=== PATIENT | female | born 1985 | race African-American/Black ===

== ENCOUNTER 2016-08-06 20:09 | Emergency (ER) | payer OTHER ==
[2016-08-06 21:08] LABS: Hematocrit 36 % (35-47); Hemoglobin 11.8 g/dl (12.0-16.0); Mean Corpuscular HGB Conc 33 g/dl (31-36); Mean Corpuscular Hemoglobin 28 pg (27-31); Mean Corpuscular Volume 86 fL (80-97); Mean Platelet Volume 8 um3 (7.4-10.4); Red Blood Count 4.17 10^6/ul (4.0-5.4); Red Cell Distribution Width 15 % (10.5-15); White Blood Count 10.8 10^3/ul (3.5-10.8)
[2016-08-06 21:23] LABS: Albumin 4.2 g/dL (3.2-5.2); BUN/Creatinine Ratio 12.8 (8-20); Calcium 9.2 mg/dL (8.6-10.3); EGFR African American 89.9 (>60); EGFR Non-African American 69.9 (>60); Globulin 2.8 g/dL (2-4); Potassium 3.5 mmol/L (3.5-5.0); Total Bilirubin 0.2 mg/dL (0.2-1.0)
--- NOTE | 2016-08-06 22:02 | RAD ---
INDICATION: Chest pain. COMPARISON: Comparison is made with a prior chest x-ray study from October 29, 2011. TECHNIQUE: Dual-energy PA and lateral views of the chest were obtained. FINDINGS: The heart is within normal limits in size. Mediastinal and hilar contours appear within normal limits. The lungs are underinflated and clear. No pleural effusion or pneumothorax is seen. IMPRESSION: NO EVIDENCE FOR ACUTE FINDING.
[2016-08-06] MEDS ORDERED: Ibuprofen TAB* 600 MG PO ONE (22:58)
[2016-08-06 23:36] VITALS: BP 106/54
--- NOTE | 2016-09-14 22:25 | ED ---
camilo Robledo Timothy, scribed for Taurus Cancino on 08/06/16 at 2139 . HPI Chest Pain - HPI Summary HPI Summary: Darcie Muse is a 30 yo female presenting to [facility] with 10/10 constant CP since 1930 today. She states she was giving her son a bath when the pain began, and it has not resolved. She sates she gets dizzy with changes in position, and she felt nauseous during transport She states she sees her PCP for her CP which is reocurring. Pt wore a monitor last week. She denies any drug abuse. Her MHx includes hypothyroidism, hypotension, migraine, asthma, GERD, IBS, hydronephrosis, inverted left SI joint per Pt, depression, andxiety, MRSA. - History of Current Complaint Chief Complaint: EDChestPainROMI Time Seen by Provider: 08/06/16 21:16 Hx Obtained From: Patient Onset/Duration: Started Hours Ago, Still Present Time of Onset: 19:30 Timing: Constant Initial Severity: Moderate Current Severity: Moderate Pain Intensity: 10 Pain Scale Used: 0-10 Numeric Chest Pain Location: Diffuse Chest Pain Radiates: No Aggravating Factor(s): Position - dizziness changes with position Associated Signs and Symptoms: Positive: Chest Pain, Dizziness, Nausea - Additional Pertinent History Primary Care Physician: SHIREEN - Allergy/Home Medications Allergies/Adverse Reactions: Allergies Allergy/AdvReac Type Severity Reaction Status Date / Time Hydromorphone [From Dilaudid] Allergy Intermediate Nausea Verified 03/02/16 02: 48 Cephalexin [From Keflex] AdvReac Intermediate Nausea Verified 08/06/16 20:30 Oxycodone [From Percocet] AdvReac Mild Nausea And Verified 08/06/16 20:30 Vomiting Ciprofloxacin AdvReac Nausea And Verified 03/02/16 02:48 Vomiting PMH/Surg Hx/FS Hx/Imm Hx Endocrine/Hematology History: Reports: Hx Thyroid Disease Denies: Hx Diabetes Cardiovascular History: Reports: Hx Hypotension Denies: Hx Congestive Heart Failure, Hx Hypertension Respiratory History: Reports: Hx Asthma GI History: Reports: Hx Gastroesophageal Reflux Disease, Hx Irritable Bowel, Other GI Disorders - Appendectomy, stomach "issues" History: Reports: Other Problems/Disorders - hydronephrosis Denies: Hx Renal Disease Musculoskeletal History: Reports: Hx Back Problems, Other Musculoskeletal History - INVERTED LEFT SI JOINT PER PT Sensory History: Denies: Hx Contacts or Glasses, Hx Hearing Aid Opthamlomology History: Denies: Hx Contacts or Glasses Neurological History: Reports: Hx Migraine - OCC Psychiatric History: Reports: Hx Anxiety, Hx Depression, Other Psychiatric Issues/Disorders - Benadryl overdose October 2015, took 10 pills due to insommnia Denies: Hx Eating Disorder, Hx Substance Abuse - Surgical History Surgery Procedure, Year, and Place: UMBILICAL HERNIA REPAIR 2001. OVARIAN [place]OMY [place] [facility] [place] 09/08 [facility] [place]x Anesthesia Reactions: No - Immunization History Date of Tetanus Vaccine: Unk Date of Influenza Vaccine: None Infectious Disease History: No Infectious Disease History: Reports: Hx of Known/Suspected MRSA - R knee post fall, 2006 Denies: Traveled Outside the [place] in Last 30 Days - Family History Known Family History: Positive: Cardiac Disease, Other - EtOH depdence, bipolar dz per EMR, malignant hyperthermia, breast CA - Social History Alcohol Use: None Hx Substance Use: No Substance Use Type: Reports: None Substance Use Comment - Amount & Last Used: no known Hx Tobacco Use: No Smoking Status (MU): Never Smoked Tobacco Review of Systems Constitutional: Negative Eyes: Negative ENT: Negative Positive: Chest Pain Respiratory: Negative Positive: Nausea Genitourinary: Negative Musculoskeletal: Negative Skin: Negative Neurological: Other - dizziness Psychological: Normal All Other Systems Reviewed And Are Negative: Yes Physical Exam Triage Information Reviewed: Yes Vital Signs On Initial Exam: Initial Vitals Temp Pulse Resp BP Pulse Ox 98.2 F 70 20 128/63 100 08/06/16 20:10 08/06/16 20:10 08/06/16 20:10 08/06/16 20:10 08/06/16 20:10 Vital Signs Reviewed: Yes Appearance: Positive: Well-Appearing, No Pain Distress, Well-Nourished Skin: Positive: Warm, Skin Color Reflects Adequate Perfusion, Dry Head/Face: Positive: Normal Head/Face Inspection Eyes: Positive: EOMI, CHOCO ENT: Positive: Normal ENT inspection Neck: Positive: Supple, Nontender Respiratory/Lung Sounds: Positive: Clear to Auscultation, Breath Sounds Present Cardiovascular: Positive: RRR, Pulses are Symmetrical in both Upper and Lower Extremities Abdomen Description: Positive: Nontender, Soft Bowel Sounds: Positive: Present Musculoskeletal: Positive: Normal, Strength/ROM Intact Neurological: Positive: Normal, Sensory/Motor Intact, Alert, Oriented to Person Place, Time Psychiatric: Positive: Normal Diagnostics - Vital Signs Vital Signs Temp Pulse Resp BP Pulse Ox 08/06/16 21:02 98 F 71 16 111/60 100 08/06/16 20:10 98.2 F 70 20 128/63 100 - Laboratory Lab Results: Lab Results 08/06/16 Range/Units 20:58 WBC 10.8 (3.5-10.8) 10^3/ul RBC 4.17 (4.0-5.4) 10^6/ul Hgb 11.8 L (12.0-16.0) g/dl Hct 36 (35-47) % MCV 86 (80-97) fL MCH 28 (27-31) pg MCHC 33 (31-36) g/dl RDW 15 (10.5-15) % Plt Count 313 (150-450) 10^3/ul MPV 8 (7.4-10.4) um3 Neut % (Auto) 50.1 (38-83) % Lymph % (Auto) 39.9 (25-47) % [place] % (Auto) 6.0 (1-9) % Eos % (Auto) 3.6 (0-6) % Baso % (Auto) 0.4 (0-2) % Absolute Neuts (auto) 5.4 (1.5-7.7) 10^3/ul Absolute Lymphs (auto) 4.3 (1.0-4.8) 10^3/ul Absolute Monos (auto) 0.6 (0-0.8) 10^3/ul Absolute Eos (auto) 0.4 (0-0.6) 10^3/ul Absolute Basos (auto) 0 (0-0.2) 10^3/ul Absolute Nucleated RBC 0 10^3/ul Nucleated RBC % 0 Result Diagrams: 08/06/16 20:58 08/06/16 20:58 Lab Statement: Any lab studies that have been ordered have been reviewed, and results considered in the medical decision making process. - Radiology CXR Xray Interpretation: No Acute Changes - IMPRESSION: NO EVIDENCE FOR ACUTE FINDING. Radiology Interpretation Completed By: Radiologist - EKG 2014 Cardiac Rate: NL EKG Interpretation: NSR @ 81 BPM, nonspecific T-changes. Chest Pain Course/Dx - Course Assessment/Plan: Darcie Muse is a 30 yo female presenting to [facility] with 10/ 10 CP since 1930 today. After review of her lab work and negative CXR and normal EKG, she will be discharged home with musculoskeletal CP and appropriate instructions. - Diagnoses Provider Diagnoses: Atypical chest pain, Musculoskeletal chest pain Discharge - Discharge Plan Condition: Stable Disposition: HOME Patient Education Materials: Chest Pain (ED) Referrals: Jonna Lin MD [Primary Care Provider] - 3 Days Additional Instructions: Please follow up with your primary care physician in 3 days regarding your visit to the emergency department today. Return to the emergency department with any new or recurring symptoms. The documentation as recorded by the camilo snyder Timothy accurately reflects the service I personally performed and the decisions made by , Taurus Cancino.
== END 2016-08-06 23:51 | disposition home or self-care (01) ==
LOC: ED 20:09
DX: R07.89 Other chest pain (principal); R42 Dizziness and giddiness; R11.0 Nausea
CPT/HCPCS: 36415; 71020; 80053; 84484; 85025; 85379; 85610; 85730; 93005; 99282; A9270-GY

== ENCOUNTER 2017-03-06 20:00 | Emergency (ER) | payer OTHER ==
[2017-03-07] MEDS ORDERED: traMADol TAB* 50 MG PO ONE ×2 (01:22→05:36)
[2017-03-07 03:02] LABS: Hematocrit 37 % (35-47); Hemoglobin 12.1 g/dl (12.0-16.0); Mean Corpuscular HGB Conc 33 g/dl (31-36); Mean Corpuscular Hemoglobin 29 pg (27-31); Mean Corpuscular Volume 90 fL (80-97); Mean Platelet Volume 8 um3 (7.4-10.4); Red Blood Count 4.11 10^6/ul (4.0-5.4); Red Cell Distribution Width 14 % (10.5-15); White Blood Count 11.4 10^3/ul (3.5-10.8)
[2017-03-07 03:17] LABS: Albumin 4.4 g/dL (3.2-5.2); C Reactive Protein 2.68 mg/L (< 5.00); Calcium 9.3 mg/dL (8.6-10.3); EGFR African American 112.4 (>60); EGFR Non-African American 87.4 (>60); Globulin 2.5 g/dL (2-4); Potassium 3.9 mmol/L (3.5-5.0); Total Bilirubin 0.2 mg/dL (0.2-1.0); Total Protein 6.9 g/dL (6.4-8.9)
[2017-03-07 03:27] LABS: Urine Bilirubin Negative (Negative); Urine Glucose Negative (Negative); Urine Nitrite Negative (Negative)
[2017-03-07] MEDS ORDERED: Ketorolac INJ* 30 MG/ML 1 ML VIAL IV ONE (05:36)
[2017-03-07 06:14] VITALS: BP 119/64
--- NOTE | 2017-03-07 07:25 | ED ---
Homero Robledo Abhishek, scribed for Jalen Sy MD on 03/07/17 at 0218 . Back Pain - HPI Summary HPI Summary: This patient is a 31 year old F presenting to [facility] with a chief complaint of right, middle back pain worse since yesterday and onset was two weeks ago. The CC is described as constant and sore on the right side. Pt states pain radiated to the lower extremities in one episode. The patient rates the pain 9/10 in severity. Symptoms aggravated by nothing. Symptoms alleviated by movement. Patient reports CATHERINE. Patient denies SOB, abd pain, fevers, decreased appetite, and chills. PMHx includes frequent urination since , and hydronephrosis. Last was last year. - History of Current Complaint Chief Complaint: EDBackInjuryPain Stated Complaint: BACK PAIN Time Seen by Provider: 03/07/17 01:09 Hx Obtained From: Patient Onset/Duration: Lasting Weeks - 2 weeks, Worse Since - Yesterday Onset/Duration: Started Weeks Ago - 2 weeks Timing: Constant Back Pain Location: Is Discrete @ - Right; middle side, Radiates To - Lower extremeties in one episode Severity Initially: Severe Pain Intensity: 9 Pain Scale Used: 0-10 Numeric Character: Aching - Sore Aggravating Symptom(s): Nothing Alleviating Symptom(s): Other - Movement Associated Signs And Symptoms: Positive: Other - Positive headache and negative SOB, decreased appetite, and chills. Negative: Fever, Abdominal Pain - Allergies/Home Medications Allergies/Adverse Reactions: Allergies Allergy/AdvReac Type Severity Reaction Status Date / Time Hydromorphone [From Dilaudid] Allergy Intermediate Nausea Verified 03/02/16 02: 48 Cephalexin [From Keflex] AdvReac Intermediate Nausea Verified 08/06/16 20:30 Oxycodone [From Percocet] AdvReac Mild Nausea And Verified 08/06/16 20:30 Vomiting Ciprofloxacin AdvReac Nausea And Verified 03/02/16 02:48 Vomiting PMH/Surg Hx/FS Hx/Imm Hx Endocrine/Hematology History: Reports: Hx Thyroid Disease Denies: Hx Diabetes Cardiovascular History: Reports: Hx Hypotension Denies: Hx Congestive Heart Failure, Hx Hypertension Respiratory History: Reports: Hx Asthma GI History: Reports: Hx Gastroesophageal Reflux Disease, Hx Irritable Bowel, Other GI Disorders - Appendectomy, stomach "issues" History: Reports: Other Problems/Disorders - hydronephrosis; frequent urination Denies: Hx Renal Disease Musculoskeletal History: Reports: Hx Back Problems, Other Musculoskeletal History - INVERTED LEFT SI JOINT PER PT Sensory History: Denies: Hx Contacts or Glasses, Hx Hearing Aid Opthamlomology History: Denies: Hx Contacts or Glasses Neurological History: Reports: Hx Migraine - OCC Psychiatric History: Reports: Hx Anxiety, Hx Depression, Other Psychiatric Issues/Disorders - Benadryl overdose October 2015, took 10 pills due to insommnia Denies: Hx Eating Disorder, Hx Substance Abuse - Surgical History Surgery Procedure, Year, and Place: UMBILICAL HERNIA REPAIR 2001. OVARIAN CYSTECTOMY 2006 [facility] [place]. Appendectomy 09/08 [facility] [place] Hx Anesthesia Reactions: No - Immunization History Date of Tetanus Vaccine: Unk Date of Influenza Vaccine: None Infectious Disease History: No Infectious Disease History: Reports: Hx of Known/Suspected MRSA - R knee post fall, 2006 Denies: Traveled Outside the [place] in Last 30 Days - Family History Known Family History: Positive: Cardiac Disease, Other - EtOH depdence, bipolar dz per EMR, malignant hyperthermia, breast CA - Social History Alcohol Use: None Hx Substance Use: No Substance Use Type: Reports: None Substance Use Comment - Amount & Last Used: no known Hx Tobacco Use: No Smoking Status (MU): Never Smoked Tobacco Review of Systems Constitutional: Negative Negative: Fever, Chills Eyes: Negative ENT: Negative Cardiovascular: Negative Respiratory: Negative Negative: Shortness Of Breath Positive: Other - Negative decreased appetite. Negative: Abdominal Pain Genitourinary: Negative Positive: Other - Right, lower middle back pain. pain radiated to lower extremities in one episode. Skin: Negative Positive: Headache Psychological: Normal All Other Systems Reviewed And Are Negative: Yes Physical Exam - Summary Physical Exam Summary: General: mild pain distress, no pain distress Skin: warm, color reflects adequate perfusion, dry Head: normal Eyes: EOMI, CHOCO ENT: normal Neck: supple, nontender Respiratory: CTA, breath sounds present Cardiovascular: RRR Abdomen: soft, nontender Bowel: present Musculoskeletal: strength/ROM intact, tender in the lower thoracic/upper lumbar to palpation, the LE reflexes are intact with no sensation deficits Neurological: normal, sensory/motor intact, A&O x3 Psychological: affect/mood appropriate Triage Information Reviewed: Yes Vital Signs On Initial Exam: Initial Vitals Temp Pulse Resp BP Pulse Ox 97.5 F 69 18 110/67 99 03/06/17 20:11 03/06/17 20:11 03/06/17 20:11 03/06/17 20:11 03/06/17 20:11 Vital Signs Reviewed: Yes - Candice Coma Scale Coma Scale Total: 15 Diagnostics - Vital Signs Vital Signs Temp Pulse Resp BP Pulse Ox 03/06/17 22:15 74 18 124/57 100 03/06/17 20:11 97.5 F 69 18 110/67 99 - Laboratory Lab Results: Lab Results 03/07/17 03/07/17 03/07/17 Range/Units 02:40 02:40 02:40 WBC 11.4 H (3.5-10.8) 10^3/ul RBC 4.11 (4.0-5.4) 10^6/ul Hgb 12.1 (12.0-16.0) g/dl Hct 37 (35-47) % MCV 90 (80-97) fL MCH 29 (27-31) pg MCHC 33 (31-36) g/dl RDW 14 (10.5-15) % Plt Count 311 (150-450) 10^3/ul MPV 8 (7.4-10.4) um3 Neut % (Auto) 52.0 (38-83) % Lymph % (Auto) 37.0 (25-47) % [place] % (Auto) 6.5 (1-9) % Eos % (Auto) 3.6 (0-6) % Baso % (Auto) 0.9 (0-2) % Absolute Neuts (auto) 5.9 (1.5-7.7) 10^3/ul Absolute Lymphs (auto) 4.2 (1.0-4.8) 10^3/ul Absolute Monos (auto) 0.7 (0-0.8) 10^3/ul Absolute Eos (auto) 0.4 (0-0.6) 10^3/ul Absolute Basos (auto) 0.1 (0-0.2) 10^3/ul Absolute Nucleated RBC 0.01 10^3/ul Nucleated RBC % 0.1 Sodium 137 (133-145) mmol/L Potassium 3.9 (3.5-5.0) mmol/L Chloride 106 (101-111) mmol/L Carbon Dioxide 25 (22-32) mmol/L Anion Gap 6 (2-11) mmol/L BUN 10 (6-24) mg/dL Creatinine 0.77 (0.51-0.95) mg/dL Est GFR ( Amer) 112.4 (>60) Est GFR (Non-Af Amer) 87.4 (>60) BUN/Creatinine Ratio 13.0 (8-20) Glucose 99 (70-100) mg/dL Lactic Acid 0.8 (0.5-2.0) mmol/L Calcium 9.3 (8.6-10.3) mg/dL Total Bilirubin 0.20 (0.2-1.0) mg/dL AST 13 (13-39) U/L ALT 14 (7-52) U/L Alkaline Phosphatase 40 (34-104) U/L C-Reactive Protein 2.68 (< 5.00) mg/L Total Protein 6.9 (6.4-8.9) g/dL Albumin 4.4 (3.2-5.2) g/dL Globulin 2.5 (2-4) g/dL Albumin/Globulin Ratio 1.8 (1-3) Lipase 62 (11.0-82.0) U/L Urine Color Urine Appearance Urine pH (5-9) Ur Specific [place] (1.010-1.030) Urine Protein (Negative) Urine Ketones (Negative) Urine Blood (Negative) Urine Nitrate (Negative) Urine Bilirubin (Negative) Urine Urobilinogen (Negative) Ur Leukocyte Esterase (Negative) Urine Glucose (Negative) Urine Ascorbic Acid (Negative) 03/07/17 Range/Units 02:40 WBC (3.5-10.8) 10^3/ul RBC (4.0-5.4) 10^6/ul Hgb (12.0-16.0) g/dl Hct (35-47) % MCV (80-97) fL MCH (27-31) pg MCHC (31-36) g/dl RDW (10.5-15) % Plt Count (150-450) 10^3/ul MPV (7.4-10.4) um3 Neut % (Auto) (38-83) % Lymph % (Auto) (25-47) % [place] % (Auto) (1-9) % Eos % (Auto) (0-6) % Baso % (Auto) (0-2) % Absolute Neuts (auto) (1.5-7.7) 10^3/ul Absolute Lymphs (auto) (1.0-4.8) 10^3/ul Absolute Monos (auto) (0-0.8) 10^3/ul Absolute Eos (auto) (0-0.6) 10^3/ul Absolute Basos (auto) (0-0.2) 10^3/ul Absolute Nucleated RBC 10^3/ul Nucleated RBC % Sodium (133-145) mmol/L Potassium (3.5-5.0) mmol/L Chloride (101-111) mmol/L Carbon Dioxide (22-32) mmol/L Anion Gap (2-11) mmol/L BUN (6-24) mg/dL Creatinine (0.51-0.95) mg/dL Est GFR ( Amer) (>60) Est GFR (Non-Af Amer) (>60) BUN/Creatinine Ratio (8-20) Glucose (70-100) mg/dL Lactic Acid (0.5-2.0) mmol/L Calcium (8.6-10.3) mg/dL Total Bilirubin (0.2-1.0) mg/dL AST (13-39) U/L ALT (7-52) U/L Alkaline Phosphatase (34-104) U/L C-Reactive Protein (< 5.00) mg/L Total Protein (6.4-8.9) g/dL Albumin (3.2-5.2) g/dL Globulin (2-4) g/dL Albumin/Globulin Ratio (1-3) Lipase (11.0-82.0) U/L Urine Color Yellow Urine Appearance Clear Urine pH 6.0 (5-9) Ur Specific [place] 1.017 (1.010-1.030) Urine Protein Negative (Negative) Urine Ketones Negative (Negative) Urine Blood Negative (Negative) Urine Nitrate Negative (Negative) Urine Bilirubin Negative (Negative) Urine Urobilinogen Negative (Negative) Ur Leukocyte Esterase Negative (Negative) Urine Glucose Negative (Negative) Urine Ascorbic Acid * H (Negative) Result Diagrams: 03/07/17 02:40 03/07/17 02:40 Lab Statement: Any lab studies that have been ordered have been reviewed, and results considered in the medical decision making process. - CT CT T-Spine CT Interpretation: No Acute Changes - No thoracic spine fracture. ED physician reviewed radiology report and agrees. CT Interpretation Completed By: Radiologist CT L-Spine CT Interpretation: No Acute Changes - No significant pathology. ED physician reviewed radiology report and agrees. CT Interpretation Completed By: Radiologist CT Abd/Pel CT Interpretation: No Acute Changes - No definite acute pathology. Tiny nonobstructing right renal stone. ED physician reviewed radiology report and agrees. CT Interpretation Completed By: Radiologist Back Pain Course/Dx - Course Course Of Treatment: Allergy noted; medication reviewed. DISCUSSED RESULTS WITH PATIENT. TRAMADOL HELPED THE BACK PAIN. F/U PMD; RETURN IF WORSE. NO CRITICAL CARE TIME. - Diagnoses Provider Diagnoses: Thoracic back pain, Lumbar back pain, Flank pain Discharge - Discharge Plan Condition: Stable Disposition: HOME Prescriptions: traMADol TAB* [Ultram*] 50 mg PO Q6HR PRN #20 tab MDD 4 PRN Reason: Pain Patient Education Materials: Back Pain (ED) Referrals: Jonna Lin MD [Primary Care Provider] - Additional Instructions: FOLLOW UP WITH YOUR DOCTOR. RETURN TO THE EMERGENCY DEPARTMENT FOR ANY WORSENING OF YOUR CONDITION; PIN, WEAKNESS, NUMBNESS, DIFFICULTY CONTROLLING BOWEL OR BLADDER OR QUESTIONS OR CONCERNS. The documentation as recorded by the Homero snyder Abhishek accurately reflects the service I personally performed and the decisions made by me, Jalen Sy MD.
--- NOTE | 2017-03-07 08:00 | RAD ---
INDICATION: Low thoracic, upper lumbar and right flank pain. COMPARISON: Comparison is made with a prior CT of the abdomen and pelvis from May 12, 2014. TECHNIQUE: A CT scan of the abdomen and pelvis was performed without intravenous or oral contrast. Contiguous axial sections were obtained from the lung bases through the symphysis pubis. Images were reconstructed in the coronal and sagittal planes. FINDINGS: The lung bases are clear. No pleural effusion is present. The liver and spleen are within normal limits in size without significant focal abnormality on this noncontrast study. No calcified gallstones are seen. The pancreas appears to be within normal limits in size. The adrenal glands and kidneys are normal in size. There is a 5 mm calculus in the lower pole of the right kidney which is nonobstructing. No hydronephrosis is seen. The aorta is normal in caliber with mild calcific plaque present. No significant enlarged retroperitoneal lymph nodes are seen. The stomach, small and large bowel appear nondistended. The patient is status post appendectomy. There is mild descending and sigmoid diverticulosis without evidence for diverticulitis. The uterus is anteverted and normal in size. There is a T-shaped IUD present. No free intraperitoneal air or fluid is seen. There is sclerotic change around both sacroiliac joints consistent with bilateral sacroiliitis. No significant focal osseous normality is seen. IMPRESSION: 1. NO EVIDENCE FOR ACUTE FINDING OR CAUSE FOR THE PATIENT'S ABDOMINAL PAIN IS SEEN. 2. SMALL NONOBSTRUCTING RIGHT RENAL CALCULUS.
--- NOTE | 2017-03-07 08:00 | RAD ---
HISTORY: Lower thoracic pain COMPARISONS: CT of the abdomen and pelvis dated May 12, 2014. TECHNIQUE: Multiple contiguous axial CT scans were obtained of the thoracic spine without intravenous contrast, with coronal and sagittal multiplanar reformations. FINDINGS: SPINAL CANAL: Evaluation of the central canal is limited on CT technique; however, there is no obvious canalicular mass or epidural hemorrhage. ALIGNMENT: The alignment is normal. VERTEBRAL BODIES: The vertebral bodies are preserved in height. There is circumscribed lucent lesion of the posterior right hemivertebral body of T12 best seen on axial image 99. This measures 1 cm x 0.8 cm x 0.5 cm in size. This can be identified on the May 12, 2014 examination and is stable, most consistent with benign process. JOINTS: There is no subluxation or dislocation. MUSCULATURE: Unremarkable INTERVERTEBRAL DISCS: There is mild diffuse loss of intervertebral disc height throughout the spine. AXIAL IMAGES: There is no osseous central canal stenosis or neuroforaminal narrowing. SOFT TISSUES: The visualized soft tissues of the chest and abdomen are unremarkable. OTHER: None IMPRESSION: 1. THERE IS A NONAGGRESSIVE APPEARING LUCENT LESION OF THE T12 VERTEBRAL BODY, THAT CAN BE IDENTIFIED IN RETROSPECT ON EARLIER EXAMINATIONS AND IS STABLE, CONSISTENT WITH AN INDOLENT PROCESS. THIS MOST LIKELY REPRESENTS A HEMANGIOMA, THOUGH THE IMAGING APPEARANCE IS INDETERMINATE.. 2. NO ACUTE OSSEOUS INJURY TO THE THORACIC SPINE. 3. MILD DEGENERATIVE DISC DISEASE. NO OSSEOUS NEURAL FORAMINAL AREA OR CENTRAL CANAL STENOSIS.
--- NOTE | 2017-03-07 08:03 | RAD ---
HISTORY: Right mid back pain COMPARISONS: CT of the abdomen and pelvis dated May 12, 2014, CT of the thoracic spine dated March 07, 2017 TECHNIQUE: Multiple contiguous axial CT scans were obtained of the lumbar spine without intravenous contrast, with coronal and sagittal multiplanar reformations. FINDINGS: SPINAL CANAL: Evaluation of the central canal is limited on CT technique; however, there is no obvious canalicular mass or epidural hemorrhage. ALIGNMENT: The alignment is normal. VERTEBRAL BODIES: As noted on the CT of the thoracic spine, there is a nonaggressive appearing lucent lesion of the right T12 vertebral body that has been stable from 2013, consistent with a nonaggressive process JOINTS: There is no subluxation or dislocation. MUSCULATURE: Unremarkable INTERVERTEBRAL DISCS: There is mild diffuse loss of intervertebral disc height throughout the spine. AXIAL IMAGES: T12-L1: There is no osseous neural foraminal narrowing or central canal stenosis. L1-L2: There is no osseous neural foraminal narrowing or central canal stenosis. L2-L3: There is no osseous neural foraminal narrowing or central canal stenosis. L3-L4: There is no osseous neural foraminal narrowing or central canal stenosis. L4-L5: There is no osseous neural foraminal narrowing or central canal stenosis. L5-S1: There is mild broad-based disc bulge. There is no osseous neural foraminal narrowing or central canal stenosis. SOFT TISSUES: The visualized soft tissues of the abdomen are unremarkable. OTHER: There is mild SI joint osteoarthritis bilaterally. IMPRESSION: 1. MILD DEGENERATIVE DISC DISEASE. 2. MILD BILATERAL SI JOINT OSTEOARTHRITIS. 3. NO OSSEOUS NEURAL FORAMINAL OR CENTRAL CANAL STENOSIS. 4. NO ACUTE OSSEOUS INJURY TO THE LUMBAR SPINE. 5. NOTED ON THE CT OF THE THORACIC SPINE, THERE IS A NONAGGRESSIVE APPEARING LUCENT LESION OF T12 THAT HAS BEEN STABLE FROM 2013.
== END 2017-03-07 06:12 | disposition home or self-care (01) ==
LOC: ED 20:00
DX: M54.9 Dorsalgia, unspecified (principal); R10.84 Generalized abdominal pain; M51.35 Other intervertebral disc degeneration, thoracolumbar region; R51 Headache; N20.0 Calculus of kidney
CPT/HCPCS: 36415; 72128; 72131; 74176; 80053; 81003; 83605; 83690; 85025; 86140; 96374; 99284; A9270-GY; J1885

== ENCOUNTER 2017-03-20 23:27 | Emergency (ER) | payer OTHER ==
[2017-03-20] MEDS ORDERED: Morphine INJ* 4 MG/ML 1 ML CARPUJECT IV ONE (23:46)
[2017-03-21 00:10] LABS: Hematocrit 37 % (35-47); Hemoglobin 12.4 g/dl (12.0-16.0); Mean Corpuscular HGB Conc 34 g/dl (31-36); Mean Corpuscular Hemoglobin 30 pg (27-31); Mean Corpuscular Volume 90 fL (80-97); Mean Platelet Volume 8 um3 (7.4-10.4); Red Blood Count 4.15 10^6/ul (4.0-5.4); Red Cell Distribution Width 14 % (10.5-15); White Blood Count 20.7 10^3/ul (3.5-10.8)
[2017-03-21 00:11] LABS: Add Diff/Slide Review? Slide Review Added; Comments Flag Yes
[2017-03-21] MEDS ORDERED: Morphine INJ* 4 MG/ML 1 ML CARPUJECT IV ONE (00:20)
[2017-03-21 00:23] LABS: ALT 14 U/L (7-52); AST 12 U/L (13-39); Albumin 4.6 g/dL (3.2-5.2); Alkaline Phosphatase 34 U/L (34-104); Anion Gap 8 mmol/L (2-11); BUN/Creatinine Ratio 16.4 (8-20); Blood Urea Nitrogen 18 mg/dL (6-24); CO2 Carbon Dioxide 22 mmol/L (22-32); Calcium 9.6 mg/dL (8.6-10.3); Chloride 107 mmol/L (101-111); EGFR African American 74.5 (>60); EGFR Non-African American 57.9 (>60); Glucose 117 mg/dL (70-100); Lipase 33 U/L (11.0-82.0); Potassium 3.7 mmol/L (3.5-5.0); Sodium 137 mmol/L (133-145); Total Protein 7.6 g/dL (6.4-8.9)
[2017-03-21] MEDS ORDERED: LORazepam INJ* 2 MG/ML 1 ML VIAL IV PUSH ONE (01:05)
[2017-03-21 01:35] LABS: Urine Bacteria Absent (Absent); Urine Bilirubin Negative (Negative); Urine Glucose Negative (Negative); Urine Nitrite Negative (Negative)
[2017-03-21] MEDS ORDERED: Sulfamethox/Trimethoprim DS 800/160* TAB PO ONE (05:30)
--- NOTE | 2017-03-21 05:35 | ED ---
Tin Robledo Rebecca, scribed for Rosendo Huynh MD on 03/21/17 at 0032 . Back Pain - HPI Summary HPI Summary: Pt is a 31 y/o F BIBA with a PMHx of kidney stones on the R side who has increasing R-sided flank pain. After speaking with her urologist, of her own volition, she pulled out a urinary stent and has since been experiencing increasing pain. Associated pain is currently severe, ranked 10/10. Has taken Percocet 5mg x3 tabs today. Denies any fevers. She is requesting immediate pain medication and weepy on arrival. - History of Current Complaint Chief Complaint: EDFlankPain Stated Complaint: POST SURG PAIN Hx Obtained From: Patient Onset/Duration: Still Present Onset/Duration: Still Present Back Pain Location: Is Discrete @ - R flank Severity Currently: Severe Pain Intensity: 10 Pain Scale Used: 0-10 Numeric Aggravating Symptom(s): Nothing Alleviating Symptom(s): Nothing Associated Signs And Symptoms: Positive: Negative. Negative: Fever - Allergies/Home Medications Allergies/Adverse Reactions: Allergies Allergy/AdvReac Type Severity Reaction Status Date / Time Hydromorphone [From Dilaudid] Allergy Intermediate Nausea Verified 03/02/16 02: 48 Cephalexin [From Keflex] AdvReac Intermediate Nausea Verified 08/06/16 20:30 Oxycodone [From Percocet] AdvReac Mild Nausea And Verified 08/06/16 20:30 Vomiting Ciprofloxacin AdvReac Nausea And Verified 03/02/16 02:48 Vomiting PMH/Surg Hx/FS Hx/Imm Hx Endocrine/Hematology History: Reports: Hx Thyroid Disease Denies: Hx Diabetes Cardiovascular History: Reports: Hx Hypotension Denies: Hx Congestive Heart Failure, Hx Hypertension Respiratory History: Reports: Hx Asthma GI History: Reports: Hx Gastroesophageal Reflux Disease, Hx Irritable Bowel, Other GI Disorders - Appendectomy, stomach "issues" History: Reports: Hx Kidney Stones, Other Problems/Disorders - hydronephrosis; frequent urination Denies: Hx Renal Disease Musculoskeletal History: Reports: Hx Back Problems, Other Musculoskeletal History - INVERTED LEFT SI JOINT PER PT Sensory History: Denies: Hx Contacts or Glasses, Hx Hearing Aid Opthamlomology History: Denies: Hx Contacts or Glasses Neurological History: Reports: Hx Migraine - OCC Psychiatric History: Reports: Hx Anxiety, Hx Depression, Other Psychiatric Issues/Disorders - Benadryl overdose October 2015, took 10 pills due to insommnia Denies: Hx Eating Disorder, Hx Substance Abuse - Surgical History Surgery Procedure, Year, and Place: UMBILICAL HERNIA REPAIR 2001. OVARIAN [place]OM[place] 2006 [facility] [place] 09/08 [facility] [place]x Anesthesia Reactions: No - Immunization History Date of Tetanus Vaccine: Unk Date of Influenza Vaccine: None Infectious Disease History: No Infectious Disease History: Reports: Hx of Known/Suspected MRSA - R knee post fall, 2006 Denies: Traveled Outside the [place] in Last 30 Days - Family History Known Family History: Positive: Cardiac Disease, Other - EtOH depdence, bipolar dz per EMR, malignant hyperthermia, breast CA - Social History Alcohol Use: None Hx Substance Use: No Substance Use Type: Reports: None Substance Use Comment - Amount & Last Used: no known Hx Tobacco Use: No Smoking Status (MU): Never Smoked Tobacco Review of Systems Negative: Fever Positive: flank pain - R-sided All Other Systems Reviewed And Are Negative: Yes Physical Exam - Summary Physical Exam Summary: Appearance: Well-appearing, Well-nourished Skin: Warm Eyes: Normal ENT: Normal Neck: Supple, nontender Respiratory: Clear to auscultation Cardiovascular: Normal Abdomen: Soft, nontender Bowel: Present Musculoskeletal: Strength/ROM Intact, Positive R-sided CVA tenderness Neurological: Normal, A&Ox3 Psychiatric: Appears anxious Triage Information Reviewed: Yes Vital Signs On Initial Exam: Initial Vitals Temp Pulse Resp BP Pulse Ox 98.2 F 65 18 127/91 98 03/20/17 23:46 03/20/17 23:46 03/20/17 23:46 03/20/17 23:46 03/20/17 23:46 Vital Signs Reviewed: Yes - [place] Coma Scale Coma Scale Total: 15 Diagnostics - Vital Signs Vital Signs Temp Pulse Resp BP Pulse Ox 03/21/17 00:27 18 03/21/17 00:02 18 03/20/17 23:46 98.2 F 65 18 127/91 98 - Laboratory Lab Results: Lab Results 03/20/17 03/20/17 03/20/17 Range/Units 23:54 23:54 23:54 WBC 20.7 H (3.5-10.8) 10^3/ul RBC 4.15 (4.0-5.4) 10^6/ul Hgb 12.4 (12.0-16.0) g/dl Hct 37 (35-47) % MCV 90 (80-97) fL MCH 30 (27-31) pg MCHC 34 (31-36) g/dl RDW 14 (10.5-15) % Plt Count 346 (150-450) 10^3/ul MPV 8 (7.4-10.4) um3 Neut % (Auto) 54.1 (38-83) % Lymph % (Auto) 35.9 (25-47) % [place] % (Auto) 7.4 (1-9) % Eos % (Auto) 1.7 (0-6) % Baso % (Auto) 0.9 (0-2) % Absolute Neuts (auto) 11.2 H (1.5-7.7) 10^3/ul Absolute Lymphs (auto) 7.4 H (1.0-4.8) 10^3/ul Absolute Monos (auto) 1.5 H (0-0.8) 10^3/ul Absolute Eos (auto) 0.4 (0-0.6) 10^3/ul Absolute Basos (auto) 0.2 (0-0.2) 10^3/ul Absolute Nucleated RBC 0.02 10^3/ul Nucleated RBC % 0.1 INR (Anticoag Therapy) 0.94 (0.89-1.11) APTT 32.1 (26.0-36.3) seconds Sodium 137 (133-145) mmol/L Potassium 3.7 (3.5-5.0) mmol/L Chloride 107 (101-111) mmol/L Carbon Dioxide 22 (22-32) mmol/L Anion Gap 8 (2-11) mmol/L BUN 18 (6-24) mg/dL Creatinine 1.10 H (0.51-0.95) mg/dL Est GFR ( Amer) 74.5 (>60) Est GFR (Non-Af Amer) 57.9 (>60) BUN/Creatinine Ratio 16.4 (8-20) Glucose 117 H (70-100) mg/dL Calcium 9.6 (8.6-10.3) mg/dL Total Bilirubin 0.40 (0.2-1.0) mg/dL AST 12 L (13-39) U/L ALT 14 (7-52) U/L Alkaline Phosphatase 34 (34-104) U/L Total Protein 7.6 (6.4-8.9) g/dL Albumin 4.6 (3.2-5.2) g/dL Globulin 3.0 (2-4) g/dL Albumin/Globulin Ratio 1.5 (1-3) Lipase 33 (11.0-82.0) U/L Beta HCG, Quant < 0.60 mIU/mL Result Diagrams: 03/20/17 23:54 03/20/17 23:54 Lab Statement: Any lab studies that have been ordered have been reviewed, and results considered in the medical decision making process. Re-Evaluation - Re-Evaluation First Eval Re-Evaluation Time: 03:36 Change: Improved Comment: Urologist is Dr. Currie who the pt reports said he would talk to [facility] and try to get school records figured out for the pt. Pt reports that her urologist told her to remove the stent and that pain began after removal. Pain is improved from how it was previously. Back Pain Course/Dx - Course Course Of Treatment: pt feels better here in ED after meds , instructed to fu with urologist, agrees to and understads dc instructions - Diagnoses Provider Diagnoses: UTI (urinary tract infection), Flank pain Discharge - Discharge Plan Condition: Improved Disposition: HOME Prescriptions: Sulfamethox/Trimethoprim DS* [Bactrim DS 800/160 TAB*] 1 tab PO BID #10 tab Patient Education Materials: Dysuria (ED), Flank Pain (ED) Referrals: Jonna Lin MD [Primary Care Provider] - Kavitha Currie MD [Medical Doctor] - Additional Instructions: PLEASE MAKE AN APPOINTMENT FIRST THING IN THE MORNING TO BE SEEN BY YOUR UROLOGIST DR. CURRIE WITHIN 1-2 DAYS PLEASE RETURN TO THE EMERGENCY ROOM IF YOU HAVE ANY WORSENING OR CONCERNING SYMPTOMS The documentation as recorded by the Tin snyder Rebecca accurately reflects the service I personally performed and the decisions made by me, Rosendo Huynh MD.
[2017-03-21 06:41] VITALS: BP 115/83
== END 2017-03-21 06:52 | disposition home or self-care (01) ==
LOC: ED 23:27
DX: N39.0 Urinary tract infection, site not specified (principal); R10.84 Generalized abdominal pain
CPT/HCPCS: 36415; 80053; 81003; 81015; 83690; 84702; 85025; 85060; 85610; 85730; 96374; 96375; 99285; A9270-GY; J2060; J2270

== ENCOUNTER → 2017-03-22 14:01 | Emergency (ER) | payer OTHER ==
[~2017-03-22 14:01] MED LIST: D5W IVPB ONE; Morphine INJ* 4 MG/ML 1 ML CARPUJECT IV ONE; NS 0.9% 1000 ML* 1,000 ML IV ONE; Ondansetron INJ* 2 MG/ML VIAL IV ONE; Ondansetron ODT TAB* 4 MG PO ONE; SULFAMETHOXAZOLE IVPB ONE; TRIMETH IVPB ONE
[2017-03-22 15:51] LABS: Hematocrit 36 % (35-47); Hemoglobin 12.1 g/dl (12.0-16.0); Mean Corpuscular HGB Conc 34 g/dl (31-36); Mean Corpuscular Hemoglobin 30 pg (27-31); Mean Corpuscular Volume 89 fL (80-97); Mean Platelet Volume 8 um3 (7.4-10.4); Red Blood Count 4.03 10^6/ul (4.0-5.4); Red Cell Distribution Width 13 % (10.5-15); White Blood Count 14.9 10^3/ul (3.5-10.8)
[2017-03-22 16:05] LABS: Albumin 4.4 g/dL (3.2-5.2); BUN/Creatinine Ratio 13.8 (8-20); Calcium 9.2 mg/dL (8.6-10.3); EGFR African American 70.1 (>60); EGFR Non-African American 54.5 (>60); Potassium 3.4 mmol/L (3.5-5.0); Total Bilirubin 0.7 mg/dL (0.2-1.0); Total Protein 7.4 g/dL (6.4-8.9)
[2017-03-22 17:36] LABS: Urine Bacteria Absent (Absent); Urine Bilirubin Negative (Negative); Urine Glucose Negative (Negative); Urine Nitrite Negative (Negative)
[2017-03-22] MEDS: Sulfamethoxazole/Trimeth IV(*) 160 MG in D5W 250 ML BAG* 250 ML IVPB ONE ×2 (19:15→21:06)
[2017-03-22 21:08] VITALS: BP 100/64
--- NOTE | 2017-03-22 22:37 | ED ---
Brandon Robledo Alfonso, scribed for Bravo Solares MD on 03/22/17 at 1510 . Abdominal Pain/Female - HPI Summary HPI Summary: This patient is a 31 year old F presenting to [facility] referred by Dr. Lin (PCP ) accompanied by her cousin with a chief complaint of right flank pain since 4 days ago. The patient reports having a lithotripsy done for a known kidney stone 3 days ago. The patient rates the "excruciating" pain "better in the front than in the back" 10/10 in severity. Symptoms aggravated by pressure and position. Symptoms alleviated by nothing. Patient reports loss of appetite, hematuria, fever, vomiting, and nausea. - History of Current Complaint Chief Complaint: EDFlankPain Stated Complaint: UNABLE TO KEEP FOOD/DRINK DOWN/RIGHT FLANK PAIN Time Seen by Provider: 03/22/17 14:54 Hx Obtained From: Patient Onset/Duration: Gradual Onset, Lasting Days - Since 4 days ago., Still Present Timing: Constant Severity Currently: Severe Pain Intensity: 10 Pain Scale Used: 0-10 Numeric Location: Flank - R Radiates: Yes Radiates to: Back Character: Other: - Excruciating, and feels "better in the front than in the back" Aggravating Factor(s): Other: - Position and Pressure Alleviating Factor(s): Nothing Associated Signs and Symptoms: Positive: Other: - Patient reports loss of appetite, hematuria, fever, vomiting, nausea. Allergies/Adverse Reactions: Allergies Allergy/AdvReac Type Severity Reaction Status Date / Time Hydromorphone [From Dilaudid] Allergy Intermediate Nausea Verified 03/02/16 02: 48 Cephalexin [From Keflex] AdvReac Intermediate Nausea Verified 08/06/16 20:30 Oxycodone [From Percocet] AdvReac Mild Nausea And Verified 08/06/16 20:30 Vomiting Ciprofloxacin AdvReac Nausea And Verified 03/02/16 02:48 Vomiting Home Medications: Home Medications Albuterol 2.5MG/3ML (0.083%)* [Ventolin 2.5 MG/3 ML NEB.MUNA*] 2.5 mg INH Q6H PRN 03/22/17 [History Confirmed 03/22/17] Albuterol HFA INHALER* [Ventolin HFA Inhaler*] 2 puff INH Q4H PRN 03/22/17 [ History Confirmed 03/22/17] Budesonide/Formote 160/4.5(NF) [Symbicort 160/4.5 (NF)] 2 puff INH BID 03/22/17 [History Confirmed 03/22/17] Cyanocobalamin [Vitamin B-12] 5,000 mcg PO DAILY 03/22/17 [History Confirmed ] Levothyroxine TAB* [Synthroid TAB*] 25 mcg PO QAM 03/22/17 [History Confirmed ] Methocarbamol [Robaxin-750 MG TAB] 750 mg PO QID PRN 03/22/17 [History Confirmed 03/22/17] Naproxen TAB* [Naprosyn 250 mg TAB*] 500 mg PO BID 03/22/17 [History Confirmed 03/22/17] oxyCODONE/Acetamin 5/325 MG* [Percocet 5/325 TAB*] 1 tab PO Q4H PRN 03/22/17 [ History Confirmed 03/22/17] PMH/Surg Hx/FS Hx/Imm Hx Endocrine/Hematology History: Reports: Hx Thyroid Disease Denies: Hx Diabetes Cardiovascular History: Reports: Hx Hypotension Denies: Hx Congestive Heart Failure, Hx Hypertension Respiratory History: Reports: Hx Asthma GI History: Reports: Hx Gastroesophageal Reflux Disease, Hx Irritable Bowel, Other GI Disorders - Appendectomy, stomach "issues" History: Reports: Hx Kidney Stones, Other Problems/Disorders - hydronephrosis; frequent urination Denies: Hx Renal Disease Musculoskeletal History: Reports: Hx Back Problems, Other Musculoskeletal History - INVERTED LEFT SI JOINT PER PT Sensory History: Denies: Hx Contacts or Glasses, Hx Hearing Aid Opthamlomology History: Denies: Hx Contacts or Glasses Neurological History: Reports: Hx Migraine - OCC Psychiatric History: Reports: Hx Anxiety, Hx Depression, Other Psychiatric Issues/Disorders - Benadryl overdose October 2015, took 10 pills due to insommnia Denies: Hx Eating Disorder, Hx Substance Abuse - Surgical History Surgery Procedure, Year, and Place: UMBILICAL HERNIA REPAIR 2001. OVARIAN CYSTECTOMY 2006 [facility]. Appendectomy 09/08 [facility] Hx Anesthesia Reactions: No - Immunization History Date of Tetanus Vaccine: Unk Date of Influenza Vaccine: None Infectious Disease History: No Infectious Disease History: Reports: Hx of Known/Suspected MRSA - R knee post fall, 2006 Denies: Traveled Outside the [place] in Last 30 Days - Family History Known Family History: Positive: Cardiac Disease, Other - EtOH depdence, bipolar dz per EMR, malignant hyperthermia, breast CA - Social History Alcohol Use: None Hx Substance Use: No Substance Use Type: Reports: None Substance Use Comment - Amount & Last Used: no known Hx Tobacco Use: No Smoking Status (MU): Never Smoked Tobacco Review of Systems Positive: Fever Positive: Abdominal Pain, Vomiting, Nausea, Other - Loss of appetite Positive: hematuria All Other Systems Reviewed And Are Negative: Yes Physical Exam - Summary Physical Exam Summary: Appearance: Well-appearing, moderate pain distress Skin: Warm, dry, color reflects adequate perfusion Head/face: Nml head/face Eyes: Nml eyes ENT: Nml ENT Neck: Supple, non-tender Respiratory: CTA, breath sound present Cardiovascular: RRR Abdomen: Abd soft, right CVA tenderness, no abd tenderness Bowel: Bowel sounds present Musculoskeletal: Nml musculoskeletal Neurological: Nml neuro, sensory/motor intact, A&Ox3, CN Intact II-III Psychiatric: Nml psychiatric, affect/mood appropriate Triage Information Reviewed: Yes Vital Signs On Initial Exam: Initial Vitals Temp Pulse Resp BP Pulse Ox 97.8 F 79 20 115/98 98 03/22/17 14:07 03/22/17 14:07 03/22/17 14:07 03/22/17 14:07 03/22/17 14:07 Vital Signs Reviewed: Yes Diagnostics - Vital Signs Vital Signs Temp Pulse Resp BP Pulse Ox 03/22/17 14:07 97.8 F 79 20 115/98 98 - Laboratory Lab Results: Lab Results 03/22/17 03/22/17 03/22/17 Range/Units 15:40 15:40 15:40 WBC 14.9 H (3.5-10.8) 10^3/ul RBC 4.03 (4.0-5.4) 10^6/ul Hgb 12.1 (12.0-16.0) g/dl Hct 36 (35-47) % MCV 89 (80-97) fL MCH 30 (27-31) pg MCHC 34 (31-36) g/dl RDW 13 (10.5-15) % Plt Count 313 (150-450) 10^3/ul MPV 8 (7.4-10.4) um3 Neut % (Auto) 71.8 (38-83) % Lymph % (Auto) 17.7 L (25-47) % [place] % (Auto) 8.1 (1-9) % Eos % (Auto) 1.6 (0-6) % Baso % (Auto) 0.8 (0-2) % Absolute Neuts (auto) 10.7 H (1.5-7.7) 10^3/ul Absolute Lymphs (auto) 2.6 (1.0-4.8) 10^3/ul Absolute Monos (auto) 1.2 H (0-0.8) 10^3/ul Absolute Eos (auto) 0.2 (0-0.6) 10^3/ul Absolute Basos (auto) 0.1 (0-0.2) 10^3/ul Absolute Nucleated RBC 0.01 10^3/ul Nucleated RBC % 0 Sodium 135 (133-145) mmol/L Potassium 3.4 L (3.5-5.0) mmol/L Chloride 105 (101-111) mmol/L Carbon Dioxide 23 (22-32) mmol/L Anion Gap 7 (2-11) mmol/L BUN 16 (6-24) mg/dL Creatinine 1.16 H (0.51-0.95) mg/dL Est GFR ( Amer) 70.1 (>60) Est GFR (Non-Af Amer) 54.5 (>60) BUN/Creatinine Ratio 13.8 (8-20) Glucose 94 (70-100) mg/dL Lactic Acid 0.8 (0.5-2.0) mmol/L Calcium 9.2 (8.6-10.3) mg/dL Total Bilirubin 0.70 (0.2-1.0) mg/dL AST 13 (13-39) U/L ALT 14 (7-52) U/L Alkaline Phosphatase 41 (34-104) U/L Total Protein 7.4 (6.4-8.9) g/dL Albumin 4.4 (3.2-5.2) g/dL Globulin 3.0 (2-4) g/dL Albumin/Globulin Ratio 1.5 (1-3) Urine Color Urine Appearance Urine pH (5-9) Ur Specific [place] (1.010-1.030) Urine Protein (Negative) Urine Ketones (Negative) Urine Blood (Negative) Urine Nitrate (Negative) Urine Bilirubin (Negative) Urine Urobilinogen (Negative) Ur Leukocyte Esterase (Negative) Urine WBC (Auto) (Absent) Urine RBC (Auto) (Absent) Urine Bacteria (Absent) Urine Glucose (Negative) Urine Ascorbic Acid (Negative) 03/22/17 03/22/17 Range/Units 17:00 19:59 WBC (3.5-10.8) 10^3/ul RBC (4.0-5.4) 10^6/ul Hgb (12.0-16.0) g/dl Hct (35-47) % MCV (80-97) fL MCH (27-31) pg MCHC (31-36) g/dl RDW (10.5-15) % Plt Count (150-450) 10^3/ul MPV (7.4-10.4) um3 Neut % (Auto) (38-83) % Lymph % (Auto) (25-47) % [place] % (Auto) (1-9) % Eos % (Auto) (0-6) % Baso % (Auto) (0-2) % Absolute Neuts (auto) (1.5-7.7) 10^3/ul Absolute Lymphs (auto) (1.0-4.8) 10^3/ul Absolute Monos (auto) (0-0.8) 10^3/ul Absolute Eos (auto) (0-0.6) 10^3/ul Absolute Basos (auto) (0-0.2) 10^3/ul Absolute Nucleated RBC 10^3/ul Nucleated RBC % Sodium (133-145) mmol/L Potassium (3.5-5.0) mmol/L Chloride (101-111) mmol/L Carbon Dioxide (22-32) mmol/L Anion Gap (2-11) mmol/L BUN (6-24) mg/dL Creatinine (0.51-0.95) mg/dL Est GFR ( Amer) (>60) Est GFR (Non-Af Amer) (>60) BUN/Creatinine Ratio (8-20) Glucose (70-100) mg/dL Lactic Acid 0.6 (0.5-2.0) mmol/L Calcium (8.6-10.3) mg/dL Total Bilirubin (0.2-1.0) mg/dL AST (13-39) U/L ALT (7-52) U/L Alkaline Phosphatase (34-104) U/L Total Protein (6.4-8.9) g/dL Albumin (3.2-5.2) g/dL Globulin (2-4) g/dL Albumin/Globulin Ratio (1-3) Urine Color Red A Urine Appearance Turbid Urine pH 5.0 (5-9) Ur Specific [place] 1.030 (1.010-1.030) Urine Protein 2+(100 mg/dl) H (Negative) Urine Ketones 1+ H (Negative) Urine Blood 2+ H (Negative) Urine Nitrate Negative (Negative) Urine Bilirubin Negative (Negative) Urine Urobilinogen Negative (Negative) Ur Leukocyte Esterase Trace H (Negative) Urine WBC (Auto) Trace(0-5/hpf) (Absent) Urine RBC (Auto) 3+(>10/hpf) H (Absent) Urine Bacteria Absent (Absent) Urine Glucose Negative (Negative) Urine Ascorbic Acid * H (Negative) Result Diagrams: 03/22/17 15:40 03/22/17 15:40 Lab Statement: Any lab studies that have been ordered have been reviewed, and results considered in the medical decision making process. Abdominal Pain Fem Course/Dx - Course Course Of Treatment: Ms. Muse returned with intractable pain and vomiting. She improved with meds here and her labs were improveing also. - Diagnoses Provider Diagnoses: Right flank pain Discharge - Discharge Plan Condition: Stable Disposition: HOME Prescriptions: Ondansetron ODT TAB* [Zofran Odt TAB*] 4 mg PO Q6H PRN #20 tab.odt PRN Reason: Nausea/Vomiting Patient Education Materials: Flank Pain (ED) Referrals: Jonna Lin MD [Primary Care Provider] - 1 Week Kip Rowley MD [Medical Doctor] - 1 Week Additional Instructions: RETURN TO THE EMERGENCY DEPARTMENT FOR CHANGING OR WORSENING SYMPTOMS. The documentation as recorded by the Brandon snyder Alfonso accurately reflects the service I personally performed and the decisions made by , Bravo Solares MD.
== END | disposition home or self-care (01) ==
LOC: ED 14:01
DX: R10.84 Generalized abdominal pain (principal); R63.0 Anorexia; R31.9 Hematuria, unspecified; R11.2 Nausea with vomiting, unspecified
CPT/HCPCS: 36415; 80053; 81003; 81015; 83605; 85025; 87040; 87086; 99283; A9270-GY; J2270; J2405

== ENCOUNTER 2017-11-11 03:18 | Emergency (ER) | payer OTHER ==
[2017-11-11] MEDS ORDERED: diPHENhydraMINE IV* 50 MG/ML 1 ml VIAL (BENADRYL) IV ONE (03:37)
[2017-11-11] MEDS ORDERED: Metoclopramide IV* 5 MG/ML 2 ML VIAL IV ONE (03:37)
[2017-11-11] MEDS ORDERED: NS 0.9% 1000 ML* 1,000 ML IV ONE (03:37)
[2017-11-11] MEDS ORDERED: fentaNYL* 50 MCG/ML 2 ML VIAL (100 MCG VIAL) IV SLOW PU ONE (03:37)
[2017-11-11 04:08] LABS: Hematocrit 38 % (35-47); Hemoglobin 12.8 g/dl (12.0-16.0); Mean Corpuscular HGB Conc 34 g/dl (31-36); Mean Corpuscular Hemoglobin 31 pg (27-31); Mean Corpuscular Volume 91 fL (80-97); Mean Platelet Volume 8.6 um3 (7.4-10.4); Platelet Count 298 10^3/ul (150-450); Red Blood Count 4.17 10^6/ul (4.00-5.40); Red Cell Distribution Width 13 % (10.5-15); White Blood Count 11.7 10^3/ul (3.5-10.8)
[2017-11-11 04:20] LABS: ABS Basophils 0.1 10^3/ul (0-0.2); ABS Eosinophils 0.4 10^3/ul (0-0.6); ABS Lymphocytes 5.2 10^3/ul (1.0-4.8); ABS Monocytes 0.9 10^3/ul (0-0.8); ABS Neutrophils 4.9 10^3/ul (1.5-7.7)
[2017-11-11 04:25] LABS: Urine Appearance Cloudy; Urine Blood 1+ (Negative); Urine Color Yellow; Urine Ketones Negative (Negative); Urine Protein Negative (Negative); Urine Red Blood Cell 3+(>10/hpf) (Absent); Urine Urobilinogen Negative (Negative); Urine White Blood Cell Trace(0-5/hpf) (Absent)
[2017-11-11 05:08] LABS: ABS Nucleated RBC 0 10^3/ul; Eosinophil % 3.1 % (0-6); Lymphocyte % 45.6 % (25-47); Nucleated Red Blood Cells % 0.1
--- NOTE | 2017-11-11 07:24 | ED ---
Verna Robledo Gabriel, scribed for Minor Malave MD on 11/11/17 at 0422 . Abdominal Pain/Female - HPI Summary HPI Summary: This patient is a 31 year old F presenting to [facility] accompanied by his mother with a chief complaint of RUQ and LUQ pain sudden onset an hour ago was asleep woke up. The patient rates the pain 10/10 in severity. Patient reports vomiting. Her last bm was earlier today and states it was normal. She ate dinner tonight which consisted of macaroni and fried chicken, 4 hours prior to onset. Has murina in place. Hx of kidney stones but states it doesnt feel like it. - History of Current Complaint Chief Complaint: EDAbdPain Stated Complaint: ABD PAIN Time Seen by Provider: 11/11/17 03:27 Hx Obtained From: Patient Onset/Duration: Lasting Hours - 2, Still Present Timing: Constant Severity Initially: Severe Severity Currently: Severe Pain Intensity: 10 Pain Scale Used: 0-10 Numeric Location: Diffuse Radiates: No Associated Signs and Symptoms: Positive: Vomiting. Negative: Constipation, Diarrhea Allergies/Adverse Reactions: Allergies Allergy/AdvReac Type Severity Reaction Status Date / Time acetaminophen [From Percocet] Allergy Nausea And Verified 11/11/17 03:24 Vomiting cephalexin [From Keflex] Allergy Nausea And Verified 11/11/17 03:24 Vomiting ciprofloxacin Allergy Nausea And Verified 11/11/17 03:24 Vomiting hydromorphone [From Dilaudid] Allergy Nausea And Verified 11/11/17 03:24 Vomiting oxycodone [From Percocet] Allergy Nausea And Verified 11/11/17 03:24 Vomiting PMH/Surg Hx/FS Hx/Imm Hx Endocrine/Hematology History: Reports: Hx Thyroid Disease Denies: Hx Diabetes Cardiovascular History: Reports: Hx Hypotension Denies: Hx Congestive Heart Failure, Hx Hypertension Respiratory History: Reports: Hx Asthma GI History: Reports: Hx Gastroesophageal Reflux Disease, Hx Irritable Bowel, Other GI Disorders - Appendectomy, stomach "issues" History: Reports: Hx Kidney Stones, Other Problems/Disorders - hydronephrosis; frequent urination Denies: Hx Renal Disease Musculoskeletal History: Reports: Hx Back Problems, Other Musculoskeletal History - INVERTED LEFT SI JOINT PER PT Sensory History: Denies: Hx Contacts or Glasses, Hx Hearing Aid Opthamlomology History: Denies: Hx Contacts or Glasses Neurological History: Reports: Hx Migraine - OCC Psychiatric History: Reports: Hx Anxiety, Hx Depression, Other Psychiatric Issues/Disorders - Benadryl overdose October 2015, took 10 pills due to insommnia Denies: Hx Eating Disorder, Hx Substance Abuse - Surgical History Surgery Procedure, Year, and Place: UMBILICAL HERNIA REPAIR 2001. OVARIAN CYSTECTOMY 2006 [facility] [place]. [place]end[place] 09/08 [facility] [place] Hx Anesthesia Reactions: No - Immunization History Date of Tetanus Vaccine: Unk Date of Influenza Vaccine: None Infectious Disease History: No Infectious Disease History: Reports: Hx of Known/Suspected MRSA - R knee post fall, 2006 Denies: Traveled Outside the [place] in Last 30 Days - Family History Known Family History: Positive: Cardiac Disease, Other - EtOH depdence, bipolar dz per EMR, malignant hyperthermia, breast CA - Social History Alcohol Use: Rare Hx Substance Use: No Substance Use Type: Reports: None Substance Use Comment - Amount & Last Used: no known Hx Tobacco Use: No Smoking Status (MU): Never Smoked Tobacco Review of Systems Negative: Fever Positive: Abdominal Pain, Vomiting. Negative: Diarrhea All Other Systems Reviewed And Are Negative: Yes Physical Exam - Summary Physical Exam Summary: Appearance: Well appearing, writhes in pain Skin: warm, dry, reflects adequate perfusion Head/face: normal Eyes: EOMI, CHOCO ENT: normal Neck: supple, non-tender Respiratory: CTA, breath sounds present Cardiovascular: RRR, pulses symmetrical Abdomen: diffusely guarding, midline surgical scar, s/p C section, hernia repair , and appendectomy, central tenderness. negative murphys sign, mild RUQ tenderness Bowel Sounds: present Musculoskeletal: normal, strength/ROM intact Neuro: normal, sensory motor intact, A&Ox3 Triage Information Reviewed: Yes Vital Signs On Initial Exam: Initial Vitals Temp Pulse Resp BP Pulse Ox 96.7 F 89 28 0/0 99 11/11/17 03:20 11/11/17 03:20 11/11/17 03:20 11/11/17 03:20 11/11/17 03:20 Vital Signs Reviewed: Yes Diagnostics - Vital Signs Vital Signs Temp Pulse Resp BP Pulse Ox 11/11/17 03:42 20 11/11/17 03:20 96.7 F 89 28 0/0 99 - Laboratory Lab Results: Lab Results 11/11/17 11/11/17 11/11/17 Range/Units 03:41 03:41 03:41 WBC 11.7 H (3.5-10.8) 10^3/ul RBC 4.17 (4.00-5.40) 10^6/ul Hgb 12.8 (12.0-16.0) g/dl Hct 38 (35-47) % MCV 91 (80-97) fL MCH 31 (27-31) pg MCHC 34 (31-36) g/dl RDW 13 (10.5-15) % Plt Count 298 (150-450) 10^3/ul MPV 8.6 (7.4-10.4) um3 Neut % (Auto) Pending Lymph % (Auto) Pending Mayes % (Auto) Pending Eos % (Auto) Pending Baso % (Auto) Pending Absolute Neuts (auto) 4.9 (1.5-7.7) 10^3/ul Absolute Lymphs (auto) 5.2 H (1.0-4.8) 10^3/ul Absolute Monos (auto) 0.9 H (0-0.8) 10^3/ul Absolute Eos (auto) 0.4 (0-0.6) 10^3/ul Absolute Basos (auto) 0.1 (0-0.2) 10^3/ul Absolute Nucleated RBC Pending Nucleated RBC % Pending Sodium 139 (135-145) mmol/L Potassium 3.2 L (3.5-5.0) mmol/L Chloride 104 (101-111) mmol/L Carbon Dioxide 27 (22-32) mmol/L Anion Gap 8 (2-11) mmol/L BUN 13 (6-24) mg/dL Creatinine 0.90 (0.51-0.95) mg/dL Est GFR ( Amer) 93.9 (>60) Est GFR (Non-Af Amer) 73.0 (>60) BUN/Creatinine Ratio 14.4 (8-20) Glucose 133 H (70-100) mg/dL Lactic Acid 1.3 (0.5-2.0) mmol/L Calcium 9.2 (8.6-10.3) mg/dL Total Bilirubin 0.20 (0.2-1.0) mg/dL AST 35 (13-39) U/L ALT 25 (7-52) U/L Alkaline Phosphatase 37 (34-104) U/L C-Reactive Protein 2.16 (< 5.00) mg/L Total Protein 7.1 (6.4-8.9) g/dL Albumin 4.3 (3.2-5.2) g/dL Globulin 2.8 (2-4) g/dL Albumin/Globulin Ratio 1.5 (1-3) Lipase 72 (11.0-82.0) U/L Beta HCG, Quant Pending Result Diagrams: 11/11/17 03:41 11/11/17 03:41 Lab Statement: Any lab studies that have been ordered have been reviewed, and results considered in the medical decision making process. - CT CT ABD/Pelvis CT Interpretation Completed By: Radiologist - questionable minimal gallbladder edema can be further evaluated with ultrasound ED physician has reviewed this radiology report. Re-Evaluation - Re-Evaluation First Eval Change: Improved - Pain is largely gone and patient is able to rest after treatment Abdominal Pain Fem Course/Dx - Course Course Of Treatment: Patient with writhing pain not allowing me to adequately assess her on arrival. She did have blood in her urine and so a noncontrast CT was obtained. There is no evidence of kidney stone. There was some questionable wall edema of the gallbladder and so an ultrasound will be obtained. She has no Piña sign and no significant right upper quadrant tenderness. There is stool seen in the area on CAT scan. Physician assistant account manager will make disposition following the ultrasound. - Diagnoses Differential Diagnosis: Positive: Constipation, Gall Bladder Disease, Hepatitis , Pancreatitis, Renal Colic, Urinary Tract Infection Provider Diagnoses: Generalized abdominal pain Discharge - Sign-Out/Discharge Documenting (check all that apply): Sign-Out Patient Signing out patient TO: Neetu Zarate - awaiting US - Discharge Plan Condition: Fair Referrals: Jonna Lin MD [Primary Care Provider] - - Billing Disposition and Condition Condition: FAIR The documentation as recorded by the Verna snyder Gabriel accurately reflects the service I personally performed and the decisions made by me, Minor Malave MD.
--- NOTE | 2017-11-11 08:16 | RAD ---
CLINICAL HISTORY: writhing pain, microscopic hematuria COMPARISON: March 07, 2017 TECHNIQUE: Multiple contiguous axial CT scans were obtained of the abdomen and pelvis, without intravenous contrast enhancement. Coronal and sagittal multiplanar reformations are submitted for review. Oral contrast was not administered. FINDINGS: The study is limited by the lack of intravenous contrast. This limits evaluation of the solid organs and vasculature. LUNG BASES: The lung bases are clear. LIVER: The liver is normal in shape, size, contour, and attenuation. BILE DUCTS: There is no intrahepatic or extrahepatic biliary dilatation. GALLBLADDER: There is minimal gallbladder wall thickening. PANCREAS: The pancreas is normal, without mass or ductal dilatation. SPLEEN: Normal in size and appearance. UPPER GI TRACT: Evaluation of the gastrointestinal tract is limited by incomplete gastric distention. The upper GI tract is unremarkable. SMALL BOWEL AND MESENTERY: The small bowel is normal in contour, course, and caliber. There is no obstruction or dilatation. COLON: The colon is normal in contour, course, caliber. There is no pericolonic inflammatory change. ADRENALS: Normal bilaterally. KIDNEYS: The kidneys are normal in shape, size, contour, and axis. There is no hydronephrosis or nephrolithiasis. BLADDER: The bladder is incompletely distended but is grossly normal. PELVIC ORGANS: The uterus and adnexa are grossly normal for technique. An IUD is noted AORTA: The aorta is normal. IVC: Unremarkable LYMPH NODES: There is no lymphadenopathy by size criteria. ABDOMINAL WALL: There is no evidence for abdominal wall hernia. BONES AND SOFT TISSUES: Unremarkable OTHER: None IMPRESSION: 1. NO HYDRONEPHROSIS OR NEPHROLITHIASIS. 2. QUESTIONABLE MINIMAL GALLBLADDER WALL THICKENING. IF THERE IS CLINICAL CONCERN FOR A PRIMARY INFLAMMATORY PROCESS OF THE GALLBLADDER, ULTRASOUND MAY BE MORE SENSITIVE.
--- NOTE | 2017-11-11 08:40 | RAD ---
HISTORY: abd pain, GB wall edema on CT COMPARISONS: CT dated November 11, 2017 TECHNIQUE: Multiple transverse and longitudinal ultrasound images were obtained of the right upper quadrant of the abdomen using grayscale and color Doppler imaging. FINDINGS: LIVER: The liver is diffusely mildly echogenic and coarse in echotexture, with decreased acoustic transmission. The liver is otherwise normal in shape, size, and contour. There is normal hepatopedal flow of the portal vein on Doppler imaging. BILIARY TREE: There is no intrahepatic or extrahepatic biliary dilatation. The common duct measures 0.4 cm. GALLBLADDER: There is mild gallbladder wall thickening. Gallstones are noted including sternotomy within the neck of the gallbladder. There is a positive sonographic Piña sign. PANCREAS: The head of the pancreas is unremarkable. The tail of the pancreas is not well visualized secondary to overlying bowel gas. RIGHT KIDNEY: The right kidney is normal in shape, size, contour, and echogenicity. There is no hydronephrosis or nephrolithiasis. The right kidney measures 10.6 x 4.1 x 5.3 cm. AORTA AND IVC: The aorta and IVC are unremarkable. FLUID: There are no pleural effusions. There is no free fluid within the hepatorenal recess. OTHER FINDINGS: None. IMPRESSION: CHOLELITHIASIS WITH A POSITIVE SONOGRAPHIC PIÑA SIGN AND MILD GALLBLADDER WALL THICKENING, WITHOUT PERICHOLECYSTIC FLUID. THE SONOGRAPHIC FEATURES ARE INDETERMINATE FOR, BUT SUGGESTIVE OF, ACUTE CHOLECYSTITIS IN THE CORRECT CLINICAL SETTING
[2017-11-11] MEDS ORDERED: PROCHLORPERAZINE INJ 5 MG/ML 2 ML VIAL IV ONE (09:06)
[2017-11-11] MEDS ORDERED: Morphine VIAL* 4 MG/ML VIAL (1 ml vial) IV ONE (09:18)
--- NOTE | 2017-11-11 09:32 | ED ---
Progress - Progress Note Progress Note: Patient is a sign out from Dr. Malave. She presented to the ED last night with upper abdominal pain a few hours after consuming macaroni and cheese and fried chicken. She also admits to associated symptoms of nausea with vomiting. Her CT scan was positive for cholelithiasis and recommended gallbladder of the ultrasound if clinical symptoms correlated. Her gallbladder ultrasound does in fact reveal acute cholecystitis. Her LFTs and lipase were within normal limits last night. Her pain was initially controlled with Benadryl, Reglan and fentanyl however she is developing return of pain and nausea 5 hours later and she has a + Piña's sign currently. Since she has had Reglan within 8 hours, Compazine was ordered along with morphine to which patient is not allergic despite her allergy list (she reports she gets nauseous with narcotics -no allergic reaction). Discussed her case with staff from Dr. Smith's practice. He agrees to consult with the patient once he is out of surgery. In the meantime, will keep patient NPO. Her last meal was last night around 1999. She has a history of asthma which is well controlled. Denies sleep apnea. She has 1 dental cap. She has had surgery in the past and reports "I take a while to come out of anesthesia" but denies any issues during surgery. She denies cardiac issues, bleeding issues. Additionally, she has loss both her brother and her uncle this week and has been upset about it. She just buried her brother Saturday and her uncle's funerals is this Saturday - she's hoping to take care of this issue so she may attend said . UPDATE: pt spoke w/ Dr. Smith and prefers to go home w/o surgery today. Will start augmentin and provide anti-emetic. Pt aware if she feels worse, she needs to return to ED. Otherwise, will f/u w/ Dr. Smith outpatient. Fat- free diet in the meantime. Re-Evaluation - Re-Evaluation First Eval Change: Improved - Pain is largely gone and patient is able to rest after treatment Course/Dx - Course Course Of Treatment: Patient with writhing pain not allowing me to adequately assess her on arrival. She did have blood in her urine and so a noncontrast CT was obtained. There is no evidence of kidney stone. There was some questionable wall edema of the gallbladder and so an ultrasound will be obtained. She has no Piña sign and no significant right upper quadrant tenderness. There is stool seen in the area on CAT scan. Physician physiotherapist's assistant will make disposition following the ultrasound. - Diagnoses Provider Diagnoses: Generalized abdominal pain Discharge - Sign-Out/Discharge Documenting (check all that apply): Discharge/Admit/Transfer - Discharge Plan Condition: Improved Disposition: HOME Prescriptions: Amoxicillin/Clavulanate TAB* [Augmentin TAB 875*] 875 mg PO BID #20 tab Ondansetron ODT TAB* [Zofran 4 MG Odt TAB*] 8 mg PO Q8H PRN #9 tab.odt PRN Reason: Nausea Patient Education Materials: Cholecystitis (ED) Referrals: Jan Smith MD [Medical Doctor] - Additional Instructions: Take medications as directed Follow-up with Dr. Smith as discussed *If worse in the meantime, return to ED - Billing Disposition and Condition Condition: IMPROVED Disposition: Home
[2017-11-11] MEDS ORDERED: Piperacillin/Tazobac ADVAN(*) 3.375 GM in NS 0.9% 100 ML* 100 ML IVPB ONE (11:25)
[2017-11-11 12:15] VITALS: BP 145/78
--- NOTE | 2017-11-11 15:12 | CONS ---
CC: [facility]; Jonna Lin MD * CONSULTATION REPORT: DATE OF CONSULT: 11/11/17 REFERRING PROVIDER: Neetu Zarate NP, in the emergency room. REASON FOR CONSULTATION: Right upper quadrant abdominal pain. HISTORY OF PRESENT ILLNESS: Ms. Darcie Muse is a 31-year-old woman who is healthy otherwise, who developed some epigastric and right upper quadrant abdominal pain of a rather sudden onset last night. This persisted and she presented to the emergency room. This was associated with some nausea without vomiting. She had no pain into her back. She had no lower abdominal discomfort and had no diarrhea. She has not had pain typical of this in the past. In the emergency room, she was noted to be afebrile with stable vital signs. She was noted to have some mild tenderness in the epigastric and right upper quadrant without rebound or guarding, however. There were no masses and there was no lower abdominal pain. Laboratory values included white blood count of 11,700. Electrolytes, lactic acid, liver transaminases and bilirubin, as well as lipase were all unremarkable. Her test was negative. She underwent a CAT scan of the abdomen and pelvis. This was done without intravenous contrast or oral contrast. I did review these images. This shows questionable mild minimal gallbladder wall thickening, but no obvious gallstones. There was no ductal dilation. The liver was otherwise unremarkable. There were no other renal abnormalities noted. She subsequently also underwent an ultrasound of her gallbladder. I also reviewed these images. This shows cholelithiasis with a Piña sign and some mild gallbladder wall thickening without pericholecystic fluid. These findings were "suggestive of acute cholecystitis in the correct clinical setting." A surgical consultation was obtained. PAST MEDICAL HISTORY: Asthma. PAST SURGICAL HISTORY: 1. Laparoscopic appendectomy. 2. section. 3. Umbilical hernia repair without mesh. 4. Epigastric hernia repair. 5. Abdominal wall hernia just above the umbilicus with mesh according to the patient. ALLERGIES: To ACETAMINOPHEN, CEPHALEXIN, CIPRO, HYDROMORPHONE and OXYCODONE. All of the above cause nausea and vomiting. SOCIAL HISTORY: She does not smoke or drink. She has 2 young children. She is not employed at present. She lives here in [place]. PHYSICAL EXAMINATION: Temperature 98.1, pulse 59, blood pressure 103/55. In general, well-developed, well-nourished female, appears to be in no apparent distress. She is quite alert and conversive and pleasant. Lungs were clear to auscultation with normal respiratory effort. Heart with regular rate and rhythm without murmurs, rubs or gallops. Abdomen is soft and nondistended. She has a well-healed low transverse incision. There is a transverse incision above and below the umbilicus, each about 3 cm in length without palpable hernia. There is a small vertical incision midway between the umbilicus and the xiphoid without hernia. She has some mild tenderness in the right upper quadrant and epigastrium without rebound, guarding or mass. IMPRESSION: Right upper quadrant abdominal pain and cholelithiasis with a thickened gallbladder wall. She has a mild elevation of her white blood cell count. I feel that her constellation of symptoms and the imaging are all consistent with acute calculous cholecystitis which started last night. I discussed all of this with her here in the emergency room at length. I would recommend that she would undergo a laparoscopic cholecystectomy for early definitive treatment of her acute calculous cholecystitis with possible discharge later tonight or even tomorrow depending on operating room availability. I discussed the procedure with her and the risks that are but not limited to bleeding, infection, intraabdominal abscess formation, injury to peritoneal and retroperitoneal structures, common bile duct injury requiring further surgical reconstruction, the possibility of an open procedure and the risk of anesthesia and recovery times were all explained. After this discussion; however, she states that she has a variety of personal and family reasons that she would like to try to avoid surgery at this time including of several close relatives and the fact that she has 2 young children at home that do not have reliable child custody evaluator and other reasons that she feels that she would like to avoid surgery. In light of this, I did discuss the other option of treating her with oral antibiotics for 10 days to 2 weeks for treatment of her acute calculous cholecystitis. This could avoid surgery now, but I would recommend an interval cholecystectomy in the next 4 to 6 weeks as long as she continued to improve. I stressed to her that there is no guarantee that antibiotics will adequately treat her symptoms and she may become more tender or sicker in the next several days and that she would need to return to the hospital for most certainly surgery at that time which may be more complicated and more likely to involve an open procedure. After a long discussion and review of the risks and benefits of both options, she would like to try the oral antibiotic course. We will give her Augmentin 875 mg p.o. b.i.d. for at least 10 days. I gave her my business card and strongly recommend that she follow up with me in the office in the next 7 to 10 days to assure improvement as well as discussion of interval cholecystectomy usually as an outpatient. I also stressed to her that if she develops fevers or worsening abdominal discomfort, inability to eat including nausea and vomiting, she needs to present back to the emergency room for further care. [id number]/[facility] #: [id number] DONNA
== END 2017-11-11 12:29 | disposition home or self-care (01) ==
LOC: ED 03:18
DX: K80.20 Calculus of gallbladder without cholecystitis without obstruction (principal); Z87.442 Personal history of urinary calculi; Z88.3 Allergy status to other anti-infective agents; Z88.5 Allergy status to narcotic agent
CPT/HCPCS: 36415; 74176; 76705; 80053; 81003; 81015; 83605; 83690; 84702; 85025; 85060; 86140; 87086; 96374; 96375; 99282; J0780; J1200; J2543; J2765; J3010

== ENCOUNTER 2017-11-20 03:25 | Inpatient (IN) | payer SELFPAY ==
[2017-11-20] MEDS ORDERED: NS 0.9% 1000 ML* 1,000 ML IV ONE (04:01)
[2017-11-20] MEDS ORDERED: Morphine VIAL* 4 MG/ML VIAL (1 ml vial) IV ONE ×2 (04:04→07:37)
[2017-11-20] MEDS ORDERED: Metoclopramide IV* 5 MG/ML 2 ML VIAL IV SLOW PU ONE (04:04)
[2017-11-20 04:34] LABS: ABS Basophils 0.1 10^3/ul (0-0.2); ABS Eosinophils 0.4 10^3/ul (0-0.6); ABS Lymphocytes 4.5 10^3/ul (1.0-4.8); ABS Monocytes 0.7 10^3/ul (0-0.8); ABS Neutrophils 4.8 10^3/ul (1.5-7.7); ABS Nucleated RBC 0 10^3/ul; Eosinophil % 3.8 % (0-6); Hematocrit 36 % (35-47); Hemoglobin 12.5 g/dl (12.0-16.0); Lymphocyte % 42.6 % (25-47); Mean Corpuscular HGB Conc 35 g/dl (31-36); Mean Corpuscular Hemoglobin 31 pg (27-31); Mean Corpuscular Volume 91 fL (80-97); Nucleated Red Blood Cells % 0.1; Platelet Count 301 10^3/ul (150-450); Red Blood Count 3.99 10^6/ul (4.00-5.40); Red Cell Distribution Width 13 % (10.5-15); White Blood Count 10.5 10^3/ul (3.5-10.8)
[2017-11-20 04:51] LABS: EGFR Non-African American 92.4 (>60)
--- NOTE | 2017-11-20 07:07 | ED ---
Tin Robledo Rebecca, scribed for Sanjeev Han MD on 11/20/17 at 0402 . Abdominal Pain/Female - HPI Summary HPI Summary: Pt is a 32 y/o F who presents to ED c/o RUQ pain for "quite sometime" per nurse' s triage. On triage, pain is severe ranked 8/10 and characterized as sharp. Took 800 mg Ibuprofen at 2000. Additionally c/o N/V. Denies fever. For dinner, she had a ham and cheese sandwich at 1700. Has been seen for similar symptoms by [facility] ED in the past, last on 11/11 (9 days ago) after which she tried following up with her PCP, though she reports she didn't have insurance so could not get treated by her PCP or a surgeon. PSHx on the abdomen includes a hernia repair and appy. - History of Current Complaint Chief Complaint: EDAbdPain Stated Complaint: ABD PAIN Time Seen by Provider: 11/20/17 03:35 Hx Obtained From: Patient Onset/Duration: Still Present Severity Currently: Severe Pain Intensity: 8 Pain Scale Used: 0-10 Numeric Location: Discrete At: RUQ Character: Sharp Aggravating Factor(s): Nothing Alleviating Factor(s): Nothing Associated Signs and Symptoms: Positive: Nausea, Vomiting Allergies/Adverse Reactions: Allergies Allergy/AdvReac Type Severity Reaction Status Date / Time acetaminophen [From Percocet] Allergy Nausea And Verified 11/20/17 03:30 Vomiting cephalexin [From Keflex] Allergy Nausea And Verified 11/20/17 03:30 Vomiting ciprofloxacin Allergy Nausea And Verified 11/20/17 03:30 Vomiting hydromorphone [From Dilaudid] Allergy Nausea And Verified 11/20/17 03:30 Vomiting oxycodone [From Percocet] Allergy Nausea And Verified 11/20/17 03:30 Vomiting PMH/Surg Hx/FS Hx/Imm Hx Endocrine/Hematology History: Reports: Hx Thyroid Disease Denies: Hx Diabetes Cardiovascular History: Reports: Hx Hypotension Denies: Hx Congestive Heart Failure, Hx Hypertension Respiratory History: Reports: Hx Asthma GI History: Reports: Hx Gastroesophageal Reflux Disease, Hx Irritable Bowel, Other GI Disorders - Appendectomy, stomach "issues" History: Reports: Hx Kidney Stones, Other Problems/Disorders - hydronephrosis; frequent urination Denies: Hx Renal Disease Musculoskeletal History: Reports: Hx Back Problems, Other Musculoskeletal History - INVERTED LEFT SI JOINT PER PT Sensory History: Denies: Hx Contacts or Glasses, Hx Hearing Aid Opthamlomology History: Denies: Hx Contacts or Glasses Neurological History: Reports: Hx Migraine - OCC Psychiatric History: Reports: Hx Anxiety, Hx Depression, Other Psychiatric Issues/Disorders - Benadryl overdose October 2015, took 10 pills due to insommnia Denies: Hx Eating Disorder, Hx Substance Abuse - Surgical History Surgery Procedure, Year, and Place: UMBILICAL HERNIA REPAIR 2001. OVARIAN CYSTECTOMY 2006 [facility] [place]. Appendectomy 09/08 [facility] [place] Hx Anesthesia Reactions: No - Immunization History Date of Tetanus Vaccine: Unk Date of Influenza Vaccine: None Infectious Disease History: No Infectious Disease History: Reports: Hx of Known/Suspected MRSA - R knee post fall, 2006 Denies: Traveled Outside the [place] in Last 30 Days - Family History Known Family History: Positive: Cardiac Disease, Other - EtOH depdence, bipolar dz per EMR, malignant hyperthermia, breast CA - Social History Alcohol Use: Rare Hx Substance Use: No Substance Use Type: Reports: None Substance Use Comment - Amount & Last Used: no known Hx Tobacco Use: No Smoking Status (MU): Never Smoked Tobacco Review of Systems Negative: Fever Positive: Abdominal Pain - RUQ, Vomiting, Nausea All Other Systems Reviewed And Are Negative: Yes Physical Exam - Summary Physical Exam Summary: VITAL SIGNS: Reviewed. GENERAL: Patient is a well-developed and nourished female who is lying comfortable in the stretcher. Patient is not in any acute respiratory distress. HEAD AND FACE: No signs of trauma. No ecchymosis, hematomas or skull depressions. No sinus tenderness. EYES: PERRLA, EOMI x 2, No injected conjunctiva, no nystagmus. EARS: Hearing grossly intact. Ear canals and tympanic membranes are within normal limits. MOUTH: Oropharynx within normal limits. NECK: Supple, trachea is midline, no adenopathy, no JVD, no carotid bruit, no c- spine tenderness, neck with full ROM. CHEST: Symmetric, no tenderness at palpation LUNGS: Clear to auscultation bilaterally. No wheezing or crackles. CVS: Regular rate and rhythm, S1 and S2 present, no murmurs or gallops appreciated. ABDOMEN: Soft, RUQ tenderness. No signs of distention. No rebound no guarding, and no masses palpated. Bowel sounds are normal. EXTREMITIES: FROM in all major joints, no edema, no cyanosis or clubbing. NEURO: Alert and oriented x 3. No acute neurological deficits. Speech is normal and follows commands. SKIN: Dry and warm Triage Information Reviewed: Yes Vital Signs On Initial Exam: Initial Vitals Temp Pulse Resp BP Pulse Ox 97.9 F 60 16 105/81 100 11/20/17 03:27 11/20/17 03:27 11/20/17 03:27 11/20/17 03:27 11/20/17 03:27 Vital Signs Reviewed: Yes Diagnostics - Vital Signs Vital Signs Temp Pulse Resp BP Pulse Ox 11/20/17 03:27 97.9 F 60 16 105/81 100 - Laboratory Result Diagrams: 11/20/17 04:25 11/20/17 04:25 Lab Statement: Any lab studies that have been ordered have been reviewed, and results considered in the medical decision making process. Re-Evaluation - Re-Evaluation First Eval Re-Evaluation Time: 05:28 Change: Improved Comment: Pt says that her pain is better, however she would like to have a cholecystectomy today, because she cannot take it anymore. She cannot have the surgery as an outpatient because she doesnt have insurance. Did not fill medications b/c she does not have insurance and is only here because she doesn t have insurance. States that she cannot eat most foods, as she is allergic to many vegetables. Will be contacting surgery. Abdominal Pain Fem Course/Dx - Course Course Of Treatment: Pt is a 32 y/o F who presents to ED c/o RUQ pain for " quite sometime" per nurse's triage. On triage, pain is severe ranked 8/10 and characterized as sharp. Took 800 mg Ibuprofen at 2000. Additionally c/o N/V. Denies fever. For dinner, she had a ham and cheese sandwich at 1700. Has been seen for similar symptoms by [facility] ED in the past, last on 11/11 (9 days ago). Blood work was done with results within normal limits except RBC of 3.99 and glucose of 104. In the ED course, pt received Reglan, morphine and fluids. Discussed care of pt with Dr. Guy who will see the pt in the ED this morning. Pt will be signed out to Dr. Rahman, pending dispo, awaiting surgery consult in the ED. Allergies noted. - Diagnoses Provider Diagnoses: Cholelithiasis - Provider Notifications Discussed Care Of Patient With: Yuan Guy Time Discussed With Above Provider: 06:29 Instructed by Provider To: Other - Will see the pt in the ED this morning at 0700. Discharge - Sign-Out/Discharge Documenting (check all that apply): Sign-Out Patient Signing out patient TO: Andrew Rahman - Pending surgeon consult - Discharge Plan Referrals: Jonna Lin MD [Primary Care Provider] - The documentation as recorded by the Tin snyder Rebecca accurately reflects the service I personally performed and the decisions made by , Sanjeev Han MD.
[2017-11-20] MEDS ORDERED: HYDROmorphone INJ* 2 MG/ML CARPUJECT SYRINGE IV PRN (09:33)
[2017-11-20] MEDS ORDERED: Ondansetron 40 MG VIAL* 2 MG/ML 20 ML VIAL IV PRN (09:33)
[2017-11-20] MEDS ORDERED: Albuterol HFA INHALER* 8 gm MDI INH PRN (09:36)
[2017-11-20] MEDS ORDERED: Albuterol 2.5 MG/3 ML NEB.SOL* (0.083%) INH PRN (09:36)
[2017-11-20] MEDS ORDERED: Zosyn 3.375 GM IV - ED ONCE IVPB ONE ×2 (10:00)
--- NOTE | 2017-11-20 11:03 | ED ---
Richard Robledo Tiffany, bonnieibed for Taurus Cancino on 11/20/17 at 1038 . Progress - Progress Note Progress Note: Patient signed out from Dr. Han, awaiting surgery consult, pending disposition. Course/Dx - Course Course Of Treatment: 32 y/o F who presents to ED c/o RUQ pain for "quite sometime" per nurse's triage. Pt signed out from Dr. Han, pending dispo, awaiting surgery consult in the ED. Dr. Henriquez came to evaluate the patient and agreed to admit. - Diagnoses Provider Diagnoses: Cholelithiasis, Abdominal pain - Provider Notifications Discussed Care Of Patient With: Stu Henriquez Time Discussed With Above Provider: 10:36 Instructed by Provider To: Other - Dr. Henriquez, surgery, agrees to admit patient. Discharge - Sign-Out/Discharge Documenting (check all that apply): Discharge/Admit/Transfer - admit - Discharge Plan Condition: Fair Disposition: ADMITTED TO [facility] Discharge Disposition Comment: To Dr. Henriquez Referrals: Jonna Lin MD [Primary Care Provider] - The documentation as recorded by the Richard snyder Tiffany accurately reflects the service I personally performed and the decisions made by Julita smith Emmanuel.
[2017-11-20] MEDS ORDERED: Morphine VIAL* 4 MG/ML VIAL (1 ml vial) IV PRN (12:35)
[2017-11-20] MEDS ORDERED: Piperacillin/Tazobactam VIAL*) 3.375 GM in NS 0.9% 100 ML* 100 ML IVPB SCH (14:00)
[2017-11-20] MEDS ORDERED: ZOSYN 3.375 GM Q8H per EXTENDED INFUSION IVPB SCH ×2 (14:30)
[2017-11-20] MEDS ORDERED: Bupivacaine 0.5% SDV PF* 30ML VIAL ONE (19:00)
[2017-11-20] MEDS ORDERED: Scopolamine 1.5 mg* PATCH ONE (19:19)
[2017-11-20] MEDS ORDERED: fentaNYL* 50 MCG/ML 2 ML VIAL (100 MCG VIAL) ONE ×3 (19:25→21:04)
[2017-11-20] MEDS ORDERED: Midazolam* 1 MG/ML 2 ML VIAL (2 MG) ONE (19:26)
[2017-11-20] MEDS ORDERED: Dexamethasone IV* 4 MG/ML 1 ML (4 MG) ONE (20:12)
[2017-11-20] MEDS ORDERED: Propofol* 10 MG/ML 20 ML BTL IV PUSH ONE (20:12)
[2017-11-20] MEDS ORDERED: Succinylcholine* 20 MG/ML 10 ML VIAL ONE (20:12)
[2017-11-20] MEDS ORDERED: Lidocaine 2% PF * 5 ML VIAL ONE (20:13)
--- NOTE | 2017-11-20 20:22 | BRIEFOPN ---
Brief Operative Note - Surgery Procedures: Procedures Pre-OP Diagnoses: chronic cholecystitis Post-op Diagnosis: same Procedure: Laparoscopic cholecystectomy Surgeon: Martinez Asst: jaqueline Anethesia: NOBLE EBL: minimal IVF: minimal Specimen: gallbladder Drains: none
[2017-11-20] MEDS ORDERED: Ketorolac INJ* 30 MG/ML 1 ML VIAL IV PRN (20:55)
[2017-11-20] MEDS ORDERED: Naloxone* 0.4 MG/ML 1 ML VIAL IV PRN (20:55)
[2017-11-20] MEDS ORDERED: Ketorolac INJ* 30 MG/ML 1 ML VIAL ONE (20:59)
[2017-11-20] MEDS ORDERED: HYDROcodone/ACETAMIN 5-325 MG* 1 TAB PO ONE (20:59)
[2017-11-20] MEDS ORDERED: Budesonide/Formote 160/4.5(NF) MDI INH SCH (21:00)
[2017-11-20] MEDS ORDERED: Mometasone/Formoter 200/5 MDI INH SCH (21:00)
[2017-11-20] MEDS ORDERED: HYDROcodone/ACETAMIN 5-325 MG* 1 TAB ONE ×2 (21:04→22:25)
[2017-11-20] MEDS: fentaNYL* 50 MCG/ML 2 ML VIAL (100 MCG VIAL) IV PRN ×3 (21:08→22:15)
[2017-11-20] MEDS ORDERED: Metoclopramide IV* 5 MG/ML 2 ML VIAL ONE (22:38)
[2017-11-20 23:17] VITALS: BP 120/66
--- NOTE | 2017-11-21 08:05 | OP ---
CC: Dr. Jonna Lin. * DATE OF OPERATION: 11/20/17 - ROOM #414 DATE OF : 85 SURGEON: Stu Henriquez MD. RELATIONS SPECIALIST: CARLENE Tanner ANESTHESIA: General anesthesia. PRE-OP DIAGNOSIS: Chronic cholecystitis. POST-OP DIAGNOSIS: Chronic cholecystitis. OPERATIVE PROCEDURE: Laparoscopic cholecystectomy. ESTIMATED BLOOD LOSS: Minimal. FLUIDS: Minimal crystalloid fluid given. SPECIMEN: Gallbladder. DESCRIPTION OF PROCEDURE: The patient was seen in the emergency room. A history and physical was documented. I discussed with her the recommendation of laparoscopic cholecystectomy given the fact that the patient was unable to obtain antibiotics and persistently had pain. My concern was possibility of acute on chronic cholecystitis. The patient agreed to proceed, understanding the potential risks and also discussing the potential alternatives. We spoke about the possible complications which included, but not limited to bleeding, infection, bile leak, bile duct injury, bowel injury, need for additional procedures, need for open procedures. The patient was marked, brought to the operating room, placed in operating table in supine position. Postoperative antibiotics were given. Sequential device was placed on bilateral lower extremities. General anesthesia was induced. The patient's abdomen was prepped and draped in standard surgical fashion. Time-out was performed. A subcostal incision was made distal to the right costal margin. This was deepened down at the anterior fascia, which was elevated and a Veress needle was inserted into the abdominal cavity, which was then allowed to insufflate to a pressure of 15 mmHg. The patient tolerated the insufflation well. The Veress needle was removed and a 5-mm trocar was inserted. A laparoscope was inserted through this and there was no evidence of injury from the trocar insertion or from the Veress needle. The abdominal cavity showed no evidence of adhesions to the anterior abdominal wall, but did show some adhesions to the dome of the liver. A 5-mm trocar was inserted in the periumbilical site and then an additional 12- mm trocar inserted in the subxiphoid and a 5-mm in the right costal margin laterally. Table was repositioned. Cautery was used to take down adhesions to the liver. The fundus of the gallbladder was identified. This did not show any significant inflammation. It was grasped and retracted over the liver. Infundibulum was retracted towards the right lower quadrant and we could see Calot's triangle. Dissection was carried out taking the peritoneum off the lateral aspect of the gallbladder and then the medial aspect. Cystic artery and cystic duct were isolated. Cystic duct was triply clipped and ligated, cystic artery was doubly clipped and ligated. The gallbladder was removed from the liver bed, placed in an endoscopic retrieval bag and brought out through the subxiphoid port site without incident. Review of the abdomen showed no bleeding, there is no bile. The tail was repositioned back in neutral. The abdomen was allowed to collapse. Trocars were removed under direct vision and all 4 skin incisions were reapproximated with 4-0 Monocryl subcuticular sutures followed by sterile dressing. [id number]/[facility] #: [id number] DONNA
--- NOTE | 2017-12-16 16:28 | DS ---
DISCHARGE SUMMARY: DATE OF ADMISSION: DATE OF DISCHARGE: 11/20/17 HOSPITAL COURSE: The patient was seen in the emergency room with a diagnosis of cholecystitis, transferred to the same-day surgery, underwent surgery, and was discharged from the PACU. [id number]/[facility] #: [id number] MTDD
--- NOTE | 2017-12-19 12:53 | DS ---
DATE OF ADMISSION: 11/20/2017. DATE OF DISCHARGE: 11/20/2017. HISTORY OF PRESENT ILLNESS AND HOSPITAL COURSE: Ms. Muse is a 32-year-old female who presented to the emergency room and was evaluated by me on 11/20/2017 where she underwent a history and physical and work-up. Noted that the patient was suffering with acute cholecystitis and I recommended laparos copic cholecystectomy. The patient agreed and signed consent, and was transferred to the preoperative area where she was evaluated by the anesthesiologist, taken to the operating room, and underwent lap aroscopic cholecystectomy. Please see separate operative report for details. The patient was transferred to the PACU for planned discharge home. She was followed by the PACU [facility], was stable, and was ultimately transferred to the floor prior to being discharged home later genet t evening. The patient was for planned follow-up in my office and to resume her previous medications . I also included a prescription for narcotics. [id number]/[facility] #: [id number]
== END 2017-11-20 19:30 | disposition home or self-care (01) | DRG 419 ==
LOC: ED 03:25 → MED 09:33
PROVIDERS: ADMIT Surgery; ATTEND Surgery
PROC: 0FT44ZZ Resection of Gallbladder, Percutaneous Endoscopic Approach (ICD-10-PCS; principal; 2017-11-20 16:30)
DX: K81.0 Acute cholecystitis (principal); K81.1 Chronic cholecystitis; K21.9 Gastro-esophageal reflux disease without esophagitis; K58.9 Irritable bowel syndrome, unspecified; J45.990 Exercise induced bronchospasm; G43.909 Migraine, unspecified, not intractable, without status migrainosus; F32.9 Major depressive disorder, single episode, unspecified; F41.9 Anxiety disorder, unspecified; E03.9 Hypothyroidism, unspecified; Z88.1 Allergy status to other antibiotic agents; Z86.14 Personal history of Methicillin resistant Staphylococcus aureus infection; Z82.49 Family history of ischemic heart disease and other diseases of the circulatory system; Z81.1 Family history of alcohol abuse and dependence; Z81.8 Family history of other mental and behavioral disorders; Z80.3 Family history of malignant neoplasm of breast; Z72.89 Other problems related to lifestyle; Z87.442 Personal history of urinary calculi; Z88.5 Allergy status to narcotic agent; Z88.8 Allergy status to other drugs, medicaments and biological substances
CPT/HCPCS: 36415; 80053; 81025; 82150; 83690; 85025; 86140; 88304; 99284; A9270-GY; J0330; J1100; J1170; J1885; J2250; J2270; J2543; J2704; J2765; J3010

== ENCOUNTER 2018-07-08 11:31 | Emergency (ER) | payer MEDICAID ==
[2018-07-08] MEDS ORDERED: Naproxen TAB* 250 MG PO ONE (11:57)
[2018-07-08] MEDS ORDERED: Promethazine TAB* 25 MG PO ONE (11:57)
[2018-07-08] MEDS ORDERED: diPHENhydraMINE PO* 25 MG PO ONE (11:57)
[2018-07-08 13:05] LABS: Urine Appearance Cloudy; Urine Bilirubin Negative (Negative); Urine Blood Negative (Negative); Urine Color Yellow; Urine Glucose Negative (Negative); Urine Ketones Negative (Negative); Urine Nitrite Negative (Negative); Urine Protein Negative (Negative); Urine Specific Gravity 1.026 (1.010-1.030); Urine Urobilinogen Negative (Negative)
[2018-07-08] MEDS ORDERED: Metoclopramide IV* 5 MG/ML 2 ML VIAL IV ONE (14:16)
[2018-07-08] MEDS ORDERED: DiMENhydriNATE IV* 50 MG/ML VIAL IV PUSH ONE (14:16)
[2018-07-08] MEDS ORDERED: NS 0.9% 500 ML* 500 ML IV ONE (14:16)
--- NOTE | 2018-07-08 14:26 | ED ---
Headache - HPI Summary HPI Summary: Patient is a 32-year-old female presenting to the ED with worsening 12/03 headache. She states the headache began on 07/03 and has gradually increased intensity since then. It started as pressure behind the right eye, and is now causing sharp, pressure-like pain "inside" the right side of her head. Today, she now presents with vision changes in her right eye she describes as "black dots with halos". She has taken ibuprofen for pain without relief, and took off work since the onset. She admits to photo and phonophobia, loss of appetite , and loss of sleep. Denies fever, vomiting, or diarrhea. Denies chest pain, palpitations, cough, or shortness of breath. Patient has a hx of migraines during that were managed with reglan/benadryl. Denies HTN or recent trauma. Hx of hypothyroidism. Patient has not taken levothyroxine the past month as she was out of prescription. Patient also complains of intermittent flank pain and urinary urgency that began around the time of her headache. She states that she will have the feeling of emptying her bladder but is unable to urinate much, and admits her urine is darker. She denies any pain or burning while urinating. Patient has hx of kidney stones that required stent placement. - History Of Current Complaint Chief Complaint: EDHeadache Stated Complaint: HEADACHE/FLANK PAIN Time Seen by Provider: 07/08/18 13:57 Hx Obtained From: Patient Onset/Duration: Gradual Onset, Started days ago Initially Headache Was: Mild - mild pressure behind right eye Currently Pain Is: Severe - pressure in Timing: Constant Character: Sharp, Pressure Location of Headache: Diffuse - Inside of right side of head, Other: Aggravating Factor: Position Change, Bright Lights Associated Signs And Symptoms: Nausea, Visual Changes - black dots with halos - Allergies/Home Medications Allergies/Adverse Reactions: Allergies Allergy/AdvReac Type Severity Reaction Status Date / Time cephalexin [From Keflex] AdvReac Nausea And Verified 07/08/18 11:43 Vomiting ciprofloxacin AdvReac Nausea And Verified 07/08/18 11:43 Vomiting hydromorphone [From Dilaudid] AdvReac Nausea And Verified 07/08/18 11:43 Vomiting oxycodone [From Percocet] AdvReac Nausea And Verified 07/08/18 11:43 Vomiting Home Medications: Home Medications Ibuprofen 800 mg PO Q8H PRN 07/08/18 [History Confirmed 07/08/18] Levonorgestrel (Iud) [Mirena IUD] 1 applic VAGINAL ONCE 07/08/18 [History Confirmed 07/08/18] PMH/Surg Hx/FS Hx/Imm Hx Endocrine/Hematology History: Reports: Hx Thyroid Disease - hypothyroid Denies: Hx Diabetes Cardiovascular History: Reports: Hx Hypotension Denies: Hx Congestive Heart Failure, Hx Hypertension Respiratory History: Reports: Hx Asthma GI History: Reports: Hx Gastroesophageal Reflux Disease, Hx Irritable Bowel, Other GI Disorders - Appendectomy, stomach "issues" History: Reports: Hx Kidney Stones, Other Problems/Disorders - hydronephrosis; frequent urination Denies: Hx Renal Disease Musculoskeletal History: Reports: Hx Back Problems, Other Musculoskeletal History - INVERTED LEFT SI JOINT PER PT Sensory History: Denies: Hx Contacts or Glasses, Hx Glaucoma, Hx Vision Problem, Hx Hearing Aid, Hx Hearing Problem Opthamlomology History: Denies: Hx Contacts or Glasses, Hx Vision Problem Neurological History: Reports: Hx Migraine - OCC Psychiatric History: Reports: Hx Anxiety, Hx Depression, Other Psychiatric Issues/Disorders - Benadryl overdose October 2015, took 10 pills due to insommnia Denies: Hx Eating Disorder, Hx Substance Abuse - Surgical History Surgery Procedure, Year, and Place: UMBILICAL HERNIA REPAIR 2001. OVARIAN CYSTECTOMY 2006 [facility] [place]. Appendectomy 09/08 [facility] [place] Hx Anesthesia Reactions: No - Immunization History Date of Tetanus Vaccine: Unk Date of Influenza Vaccine: None Infectious Disease History: No Infectious Disease History: Reports: Hx of Known/Suspected MRSA - R knee post 2006 Denies: Traveled Outside the [place] in Last 30 Days - Family History Known Family History: Positive: Unknown, Cardiac Disease, Other - EtOH depdence , bipolar dz per EMR, malignant hyperthermia, breast CA - Social History Alcohol Use: None Hx Substance Use: No Substance Use Type: Reports: Marijuana Substance Use Comment - Amount & Last Used: within the past 30 days Hx Tobacco Use: No Smoking Status (MU): Never Smoked Tobacco Review of Systems Negative: Fever, Chills, Fatigue Positive: Photophobia, Other - "black dots with halos" in right eye . Negative : Blurred Vision, Diplopia, Drainage, Erythema ENT: Negative Negative: Ear Ache, Nasal Discharge Cardiovascular: Negative Negative: Palpitations, Chest Pain Respiratory: Negative Negative: Shortness Of Breath, Cough Positive: Nausea. Negative: Abdominal Pain, Vomiting, Diarrhea Positive: urgency. Negative: burning, dysuria, frequency, hematuria Musculoskeletal: Negative Skin: Negative Positive: Headache. Negative: Weakness, Numbness, Syncope Psychological: Normal All Other Systems Reviewed And Are Negative: Yes Physical Exam Triage Information Reviewed: Yes Vital Signs On Initial Exam: Initial Vitals Temp Pulse Resp BP Pulse Ox 97.8 F 75 16 122/71 100 07/08/18 11:40 07/08/18 11:40 07/08/18 11:40 07/08/18 11:40 07/08/18 11:40 Vital Signs Reviewed: Yes Appearance: Positive: Well-Nourished, Pain Distress - Wearing sunglasses Skin: Positive: Warm, Dry Head/Face: Positive: Normal Head/Face Inspection Eyes: Positive: Normal, EOMI, CHOCO, Conjunctiva Clear ENT: Positive: Normal ENT inspection Neck: Positive: Supple, Nontender, No Lymphadenopathy Respiratory/Lung Sounds: Positive: Clear to Auscultation, Breath Sounds Present Cardiovascular: Positive: Normal, RRR. Negative: Leg Edema Left, Leg Edema Right Abdomen Description: Positive: Nontender, Soft. Negative: CVA Tenderness (R), CVA Tenderness (L) Bowel Sounds: Positive: Present Musculoskeletal: Positive: Normal, Limited @ Neurological: Positive: Normal, Sensory/Motor Intact, Alert, Oriented to Person Place, Time, CN Intact II-III, Heel to Toe, Finger to Nose, Facial Symmetry, Speech Normal Psychiatric: Positive: Normal, Affect/Mood Appropriate AVPU Assessment: Alert Diagnostics - Vital Signs Vital Signs Temp Pulse Resp BP Pulse Ox 07/08/18 11:40 97.8 F 75 16 122/71 100 - Laboratory Lab Results: Lab Results 07/08/18 Range/Units 12:55 Urine Color Yellow Urine Appearance Cloudy Urine pH 6.0 (5-9) Ur Specific Kathleen 1.026 (1.010-1.030) Urine Protein Negative (Negative) Urine Ketones Negative (Negative) Urine Blood Negative (Negative) Urine Nitrate Negative (Negative) Urine Bilirubin Negative (Negative) Urine Urobilinogen Negative (Negative) Ur Leukocyte Esterase Negative (Negative) Urine Glucose Negative (Negative) Urine Ascorbic Acid * A (Negative) Lab Statement: Any lab studies that have been ordered have been reviewed, and results considered in the medical decision making process. Headache Course/Dx - Course Course Of Treatment: Nurse's note reviwed. Patient presented to the ED with 7/ 10 headache pain. Pain has gradually increased the past 6 days. Pain began as pressure behind the right eye and has progressed to [id number] pain "inside" the right side of the head. Patient noted vision changes today in right eye as "black dots with halos." Pain unchanged with otc NSAIDs. Admits photo/phono phobia, nausea. Denies vomiting, eye or nasal discharge. Denies recent illness, fever, chills, chest pain, palpitations, sob. Admits headache during . Denies hx hypertension, hypercholesterolemia. Also admits intermittent urinary urgency and occasional flank pain around time of headache. Denies pain or burining with urination. Urinalysis revealed no acute findings. Patient was given naproxen, drammamine, reglan, promethazine and placed on oxygen. Patient notes relief of headache with this treatment. Patient does have history of similar headaches which she describes as migraine. Cluster headache is more fitting description. She is neurologically intact and has no high-risk features at this point. Repeat imaging was not performed. Prescribed promethazine to be taken as needed for headache relief in addition to otc pain medications. Advised follow-up with PCP. Advised return to ed if patient deveops new or worsening symptoms. - Diagnoses Differential Diagnosis/HQI/PQRI: Migraine, Temporal Arteritis, Tension Headache , Viral Syndrome Provider Diagnoses: Cluster headache Discharge - Sign-Out/Discharge Documenting (check all that apply): Patient Departure Patient Received Moderate/Deep Sedation with Procedure: No - Discharge Plan Condition: Improved Disposition: HOME Prescriptions: Promethazine TAB* [Phenergan Tab*] 25 mg PO Q6H PRN #20 tab PRN Reason: Headache Patient Education Materials: Cluster Headache (ED) Forms: *Work Release Referrals: Jonna Lin MD [Primary Care Provider] - Additional Instructions: Drink plenty of fluids. Caffeine may help. Medication can be taken with ibuprofen, Benadryl if worse. Do not drive all taking medication or Benadryl. Call your doctor first thing in the morning to schedule prompt follow-up. Return if worse, new symptoms or other concerns. - Billing Disposition and Condition Condition: IMPROVED Disposition: Home - Attestation Statements Document Initiated by Scribe: No
[2018-07-08 16:56] VITALS: BP 93/56
== END 2018-07-08 16:56 | disposition home or self-care (01) ==
LOC: ED 11:31
DX: G44.009 Cluster headache syndrome, unspecified, not intractable (principal); R10.84 Generalized abdominal pain; I95.9 Hypotension, unspecified; R11.0 Nausea
CPT/HCPCS: 81003; 96361; 96374; 96375; 99283; A9270-GY; J1240; J2765

== ENCOUNTER 2018-10-16 10:36 | Emergency (ER) | payer SELFPAY ==
[2018-10-16 11:00] VITALS: BP 125/83
--- NOTE | 2018-10-16 11:05 | UC ---
Throat Pain/Nasal Jignesh HPI - HPI Summary HPI Summary: 32 yo female presents with sore throat since yesterday. She states that her children have been sick with similar symptoms and strep is going around their school, but her children have no been dx'd with strep. Her sore throat began yesterday and is painful to swallow. She is tolerating po well. Nothing OTC for discomfort. Denies fever, sinus symptoms, rash, cough. - History of Current Complaint Chief Complaint: UCGeneralIllness Stated Complaint: THROAT PAIN Time Seen by Provider: 10/16/18 11:05 Hx Obtained From: Patient Hx Last Menstrual Period: iud Onset/Duration: Sudden Onset Severity: Moderate Pain Intensity: 7 Pain Scale Used: 0-10 Numeric - Allergies/Home Medications Allergies/Adverse Reactions: Allergies Allergy/AdvReac Type Severity Reaction Status Date / Time cephalexin [From Keflex] AdvReac Nausea And Verified 10/16/18 10:45 Vomiting ciprofloxacin AdvReac Nausea And Verified 10/16/18 10:45 Vomiting hydromorphone [From Dilaudid] AdvReac Nausea And Verified 10/16/18 10:45 Vomiting oxycodone [From Percocet] AdvReac Nausea And Verified 10/16/18 10:45 Vomiting PMH/Surg Hx/FS Hx/Imm Hx - Additional Past Medical History Additional PMH: None - Surgical History Surgical History: None Surgery Procedure, Year, and Place: UMBILICAL HERNIA REPAIR 2001. OVARIAN CYSTECTOMY 2006 [facility] [place]. Appendectomy 09/08 [facility] [place] - Family History Known Family History: Positive: Unknown, Cardiac Disease, Other - EtOH depdence , bipolar dz per EMR, malignant hyperthermia, breast CA - Social History Occupation: Employed Full-time Lives: With Family Alcohol Use: None Substance Use Type: None Substance Use Comment - Amount & Last Used: within the past 30 days Smoking Status (MU): Never Smoked Tobacco - Immunization History Most Recent Influenza Vaccination: fall 2015 Most Recent Tetanus Shot: 12/29/15 Most Recent Pneumonia Vaccination: never Review of Systems All Other Systems Reviewed And Are Negative: Yes Constitutional: Positive: Negative Skin: Positive: Negative Eyes: Positive: Negative ENT: Positive: Sore Throat Respiratory: Positive: Negative Cardiovascular: Positive: Negative Gastrointestinal: Positive: Negative Neurovascular: Positive: Negative Neurological: Positive: Negative Psychological: Positive: Negative Physical Exam - Summary Physical Exam Summary: GENERAL: NAD. WDWN. No pain distress. SKIN: No rashes, sores, lesions, or open wounds. HEENT: Head: AT/NC Eyes: EOM intact. Conjunctiva clear without inflammation or discharge. Ears: Hearing grossly normal. TMs intact, no bulging, erythema, or edema. Nose: Nasal mucosa pink and moist. NTTP maxillary and frontal sinus. Throat: Posterior oropharynx without exudates, erythema, or tonsillar enlargement. Uvula midline. NECK: Supple. Nontender. No lymphadenopathy. CHEST: CTAB. No r/r/w. No accessory muscle use. Breathing comfortably and in no distress. CV: RRR. Without m/r/g. Pulses intact. Cap refill <2seconds NEURO: Alert. PSYCH: Age appropriate behavior. Triage Information Reviewed: Yes Vital Signs: Initial Vital Signs Temp 97.6 F 10/16/18 10:41 Pulse 70 10/16/18 10:41 Resp 16 10/16/18 10:41 BP 125/83 10/16/18 10:41 Pulse Ox 99 10/16/18 10:41 Laboratory Tests 10/16/18 11:10 Group A Strep Rapid Negative Vital Signs Reviewed: Yes Throat Pain/Nasal Course/Dx - Course Course Of Treatment: Suspect viral sore throat. Discussed bacterial vs viral cause of symptoms and prefers anbx at this time. - Differential Dx/Diagnosis Provider Diagnosis: Pharyngitis Discharge - Sign-Out/Discharge Documenting (check all that apply): Patient Departure All imaging exams completed and their final reports reviewed: No Studies - Discharge Plan Condition: Stable Disposition: HOME Prescriptions: Amoxicillin PO (*) [Amoxicillin 500 MG CAP*] 500 mg PO Q12H #14 cap Patient Education Materials: Pharyngitis (ED) Forms: *Work Release Referrals: Jonna Lin MD [Primary Care Provider] - Additional Instructions: If you develop a fever, shortness of breath, chest pain, new or worsening symptoms - please call your PCP or go to the ED immediately. - Billing Disposition and Condition Condition: STABLE Disposition: Home
== END 2018-10-16 11:25 | disposition home or self-care (01) ==
LOC: UCEAST 10:36
DX: J02.9 Acute pharyngitis, unspecified (principal); Z88.5 Allergy status to narcotic agent
CPT/HCPCS: 87651; 99212; G0463

== ENCOUNTER 2018-11-17 20:24 | Emergency (ER) | payer SELFPAY ==
[2018-11-17 20:41] VITALS: BP 119/57
[2018-11-17] MEDS ORDERED: Ibuprofen TAB* 600 MG PO ONE (20:49)
--- NOTE | 2018-11-17 20:55 | UC ---
Lower Extremity/Ankle HPI - HPI Summary HPI Summary: 33 yo female s/p injury from dog about 2 hours ago Hurts to bear wt - History of Current Complaint Chief Complaint: UCLowerExtremity Stated Complaint: RT FOOT/TOE INJURY Time Seen by Provider: 11/17/18 20:46 Hx Obtained From: Patient Hx Last Menstrual Period: mirena Onset/Duration: Sudden Onset, Lasting Hours Severity Initially: Severe Severity Currently: Severe Pain Intensity: 9 - with wt beaing Pain Scale Used: 0-10 Numeric Aggravating Factor(s): Standing, Ambulation Alleviating Factor(s): Rest Able to Bear Weight: No Feet (Multiple View): 1 - swollen fore foot - Allergies/Home Medications Allergies/Adverse Reactions: Allergies Allergy/AdvReac Type Severity Reaction Status Date / Time cephalexin [From Keflex] AdvReac Nausea And Verified 11/17/18 20:42 Vomiting ciprofloxacin AdvReac Nausea And Verified 11/17/18 20:42 Vomiting hydromorphone [From Dilaudid] AdvReac Nausea And Verified 11/17/18 20:42 Vomiting oxycodone [From Percocet] AdvReac Nausea And Verified 11/17/18 20:42 Vomiting Home Medications: Home Medications Levothyroxine TAB* [Synthroid TAB*] 25 mcg PO 0800 11/17/18 [History Confirmed 11/17/18] PMH/Surg Hx/FS Hx/Imm Hx Previously Healthy: Yes - Surgical History Surgical History: Yes Surgery Procedure, Year, and Place: UMBILICAL HERNIA REPAIR 2001. OVARIAN CYSTECTOMY 2006 [facility] [place]. Appendectomy 09/08 [facility] [place]. cholecystectomy, 2017 - Family History Known Family History: Positive: Unknown, Cardiac Disease, Diabetes, Other - EtOH depdence, bipolar dz per EMR, malignant hyperthermia, breast CA - Social History Alcohol Use: None Substance Use Type: None Substance Use Comment - Amount & Last Used: within the past 30 days Smoking Status (MU): Never Smoked Tobacco - Immunization History Most Recent Influenza Vaccination: fall 2015 Most Recent Tetanus Shot: 12/29/15 Most Recent Pneumonia Vaccination: never Review of Systems All Other Systems Reviewed And Are Negative: Yes Constitutional: Positive: Negative Skin: Positive: Negative Eyes: Positive: Negative ENT: Positive: Negative Respiratory: Positive: Negative Cardiovascular: Positive: Negative Gastrointestinal: Positive: Negative Genitourinary: Positive: Dysuria Motor: Positive: Negative Neurovascular: Positive: Negative Musculoskeletal: Positive: Arthralgia Neurological: Positive: Negative Psychological: Positive: Negative Physical Exam Triage Information Reviewed: Yes Appearance: Well-Appearing, No Pain Distress, Well-Nourished Vital Signs: Initial Vital Signs Temp 99.0 F 11/17/18 20:34 Pulse 87 11/17/18 20:34 Resp 16 11/17/18 20:34 BP 119/57 11/17/18 20:34 Pulse Ox 100 11/17/18 20:34 Eyes: Positive: Conjunctiva Clear ENT: Positive: Hearing grossly normal. Negative: Nasal congestion, Nasal drainage, Trismus, Muffled voice, Hoarse voice Dental Exam: Normal Neck: Positive: Supple Respiratory: Positive: Lungs clear, Normal breath sounds, No respiratory distress, No accessory muscle use Cardiovascular: Positive: RRR, No Murmur Musculoskeletal: Positive: Edema @ - see image, skin intact Neurological: Positive: Alert Psychological Exam: Normal Skin Exam: Normal Diagnostics - Radiology No standard instances Radiology Interpretation Completed By: ED Physician Summary of Radiographic Findings: no fx noted Lower Extremity Course/Dx - Differential Dx/Diagnosis Provider Diagnosis: Contusion of foot, right Discharge - Sign-Out/Discharge Documenting (check all that apply): Patient Departure All imaging exams completed and their final reports reviewed: No - Discharge Plan Condition: Stable Disposition: HOME Patient Education Materials: Foot Contusion (ED), R.I.C.E. Treatment (ED), Crutch Instructions (ED) Forms: *Work Release Referrals: Jonna Lin MD [Primary Care Provider] - 1 Week (if not better) Additional Instructions: I saw not fracture official xr reading pending tylenol or advil for pain - Billing Disposition and Condition Condition: STABLE Disposition: Home
--- NOTE | 2018-11-18 12:37 | UC ---
- Progress Note Progress Note: xray report left foot : IMPRESSION: No fracture of the left foot is noted. Course/Dx - Diagnoses Provider Diagnoses: Contusion of foot, right Discharge - Sign-Out/Discharge Documenting (check all that apply): Patient Departure All imaging exams completed and their final reports reviewed: Yes - Discharge Plan Condition: Stable Disposition: HOME Patient Education Materials: Crutch Instructions (ED), Foot Contusion (ED), R.I.C.E. Treatment (ED) Forms: *Work Release Referrals: Jonna Lin MD [Primary Care Provider] - 1 Week (if not better) Additional Instructions: I saw not fracture official xr reading pending tylenol or advil for pain - Billing Disposition and Condition Condition: STABLE Disposition: Home
== END 2018-11-17 21:32 | disposition home or self-care (01) ==
LOC: UCEAST 20:24
DX: S90.31XA Contusion of right foot, initial encounter (principal); X58.XXXA Exposure to other specified factors, initial encounter; Y92.9 Unspecified place or not applicable
CPT/HCPCS: 99213; A9270-GY; G0463

== ENCOUNTER 2019-05-15 16:44 | Emergency (ER) | payer OTHER ==
--- NOTE | 2019-05-15 16:47 | UC ---
Syncope/New Syncope HPI - HPI Summary HPI Summary: 33 yo female presents with syncope. She tells me that today she woke up feeling "off". All day has felt dizzy and "robotic". She ate breakfast around 1100. About 1 hour ago she was shopping at [employer] [place] with her children and began to feel faint. Experienced tunnel vision, full body tingling, and within seconds "blacked out" and fell into the nearby clothes. She estimates she was "out" for <30seconds. She was able to get to her feet and drove her children home and then drove herself here. Currently she endorses pain behind her right eye that is photosensitive - states this has been occurring since her syncopal episode. She still feels "off" and describes it as a dizziness, but states the room does not feel like it is spinning. Notes that when she lies flat she feels "head pressure". Denies headache, SOB, chest pain, abdominal pain, vomiting, back or neck pain. She felt fine yesterday. - History Of Current Complaint Stated Complaint: DIZZINESS Time Seen by Provider: 05/15/19 16:46 Hx Obtained From: Patient Hx Last Menstrual Period: mirena Onset/Duration: Sudden Onset - Allergies/Home Medications Allergies/Adverse Reactions: Allergies Allergy/AdvReac Type Severity Reaction Status Date / Time cephalexin [From Keflex] AdvReac Nausea And Verified 05/15/19 16:55 Vomiting ciprofloxacin AdvReac Nausea And Verified 05/15/19 16:55 Vomiting hydromorphone [From Dilaudid] AdvReac Nausea And Verified 05/15/19 16:55 Vomiting oxycodone [From Percocet] AdvReac Nausea And Verified 05/15/19 16:55 Vomiting PMH/Surg Hx/FS Hx/Imm Hx Endocrine History: Hypothyroidism Respiratory History: Asthma - Surgical History Surgical History: Yes Surgery Procedure, Year, and Place: UMBILICAL HERNIA REPAIR 2001. OVARIAN CYSTECTOMY 2006 [facility] [place]. Appendectomy 09/08 [facility] [place]. cholecystectomy, 2016 - Family History Known Family History: Positive: Cardiac Disease, Diabetes, Other - EtOH depdence , bipolar dz per EMR, malignant hyperthermia, breast CA - Social History Lives: With Family Alcohol Use: None Substance Use Type: None Substance Use Comment - Amount & Last Used: within the past 30 days Smoking Status (MU): Never Smoked Tobacco - Immunization History Most Recent Influenza Vaccination: fall 2015 Most Recent Tetanus Shot: 12/29/15 Most Recent Pneumonia Vaccination: never Review of Systems All Other Systems Reviewed And Are Negative: No Constitutional: Positive: Negative Skin: Positive: Negative Respiratory: Positive: Negative Cardiovascular: Positive: Negative Neurovascular: Positive: Negative Neurological: Positive: Other - Syncope Psychological: Positive: Negative Physical Exam - Summary Physical Exam Summary: GENERAL: NAD. WDWN. SKIN: No rashes, sores, ulcers, masses, lesions. HEENT: Head: AT/NC. No raccoon eyes or battles sign. Eyes: PERRLA. EOM intact. Conjunctiva clear without inflammation or discharge. Pain in right eye during opth exam. Ears: Hearing grossly normal. TMs intact, no bulging, erythema, or edema. No hemotympanum Nose: Nasal mucosa pink and moist. NTTP maxillary and frontal sinus. Throat: Posterior oropharynx without exudates, erythema, or tonsillar enlargement. Uvula midline. NECK: Supple. Nontender. FROM CHEST: CTAB. No r/r/w. No accessory muscle use. Breathing comfortably and in no distress. CV: RRR. Pulses intact. Brisk cap refill. ABDOMEN: Soft. NTTP. Bowel sounds present MSK: FROM in B/L UEs and LEs with symmetric strength. NEURO: CN: II: Peripheral otto intact. Vision normal. III, IV, : EOMI. No nystagmus. PERRLA. V: Sensations intact and symmetric. Opens mouth and clenches teeth. VII: No facial asymmetry. Forehead wrinkles. Grins, shuts eyes, frowns, puffs cheeks. VIII: Hearing intact to finger rub. IX, X: Swallows and coughs. Uvula midline. XI: Shrugs shoulders. Turns head against resistance. XII: No tongue deviation Rmpjis-[id number] are intact. No pronator drift. No speech disturbance. PSYCH: Age appropriate behavior. Triage Information Reviewed: Yes Vital Signs: Vital Signs: Temp Pulse Resp BP Pulse Ox 97.7 F 67 16 121/83 100 05/15/19 16:49 05/15/19 16:49 05/15/19 16:49 05/15/19 16:49 05/15/19 16:49 Vital Signs Reviewed: Yes Diagnostics - EKG Summary of EKG Findings: NSR 73bpm. No STEMI as read by Dr. López. National Institutes Of Health - NIH Scale Level of Consciousness: Alert/Keenly Responsive Ask Patient the Month and His/Her Age: Both Correct Ask Pt to Open/Close Eyes and Bioinformatics Team Member/Release Non-Paretic Hand: Both Correctly Best Gaze (Only Horizontal Eye Movement): Normal Visual Field Testing: No Visual Loss Facial Paresis-Pt to Smile & Close Eyes or Grimace Symmetry: Normal/Symmetrical Motor Function - Right Arm: No Drift-Holds 10 Seconds Motor Function - Left Arm: No Drift-Holds 10 Seconds Motor Function - Right Leg: No Drift-Holds 10 Seconds Motor Function - Left Leg: No Drift-Holds 10 Seconds Limb Ataxia-Must be out of Proportion to Weakness Present: Absent Sensory (Use Pinprick to Test Arms/Legs/Trunk/Face): Normal Best Language (Describe Picture, Name Items): No Aphasia Dysarthria (Read Several Words): Normal Extinction and Inattention: No Abnormality Total Score: 0 Syncope Course/Dx - Course Course Of Treatment: EKG as above. POC glucose 110. Orthostatic vitals: Standing 136/82 Sitting 130/69 Lying 129/71 Given her dizziness, right eye pain, and syncope with continued symptoms - I recommended that she go to the ED for further evaluation by ambulance transfer. She was agreeable to this. EMS called and pt left in stable condition. Report called it [facility] in the ED. - Differential Dx/Diagnosis Differential Diagnosis/HQI/PQRI: Cerebral Vascular Accident, Dysrhythmia, Transient Ischemic Attack, Vasovagal Episode Provider Diagnosis: Dizziness, Syncope Discharge ED - Sign-Out/Discharge Documenting (check all that apply): Patient Departure All imaging exams completed and their final reports reviewed: No Studies - Discharge Plan Condition: Stable Disposition: TRANS HIGHER LVL OF CARE FAC Referrals: Jonna Lin MD [Primary Care Provider] - - Billing Disposition and Condition Condition: STABLE Disposition: Trans Higher Lvl of Care Fac - Attestation Statements Provider Attestation: Per institutional requirements, I have reviewed the chart, however, I was not consulted specifically or made aware of this patient by the midlevel provider. I did not personally evaluate, interact with , or disposition this patient.
--- OUTSIDE RECORDS SUMMARY | 2019-05-15 16:50 | XMS REPORT | Summary of Care ---
:1985 Author Organization [facility] Address [address] [facility] [place] [address] Care Team Providers Name Role Phone Jonna Lin Primary Care Provider Reason for Visit Reason Comments Chest Pain pt states that she has non-cardiac chest pain x 1.2/2 wks, wakes her up at night time Encounter Details Date Type Department Care Team Description 05/06/2019 Office Visit [place] [facility] Deni Palomino, Chest pain, unspecified type (Primary Dx); Medicine [place] Anxiety [address] [place], [place] [address] [place] [address] [phone] Allergies Active Allergy Reactions Severity Noted Date Comments Ciprofloxacin Hcl Hives 02/18/2013 Dilaudid (No Cough) Other 03/11/2010 Itching all over Keflex GI Reaction 07/23/2007 Nausea and vomiting Singulair Other 06/04/2014 Not effective documented as of this encounter (statuses as of 05/06/2019) Medications Medication Sig Dispensed Refills Start Date End Date Status budesonide-formoterol Take 2 INHL by 1 Inhaler 5 05/18/2014 Active fumarate (SYMBICORT) inhalation TWICE 160-4.5 MCG/ACT DAILY. Inhalation AerosolIndications: Asthma Cyanocobalamin (B-12) Take by mouth 0 Active 1000 MCG Oral Cap DAILY. Cholecalciferol Take 5,000 Units 0 Active (VITAMIN D-3 PO) by mouth DAILY. albuterol (PROVENTIL, 3 mL by 60 vial 5 02/28/2016 Active VENTOLIN) (2.5 MG/3ML) Inhalation-SVN 0.083% Inhalation Nebu route EVERY SIX Soln HOURS NEEDED (cough). albuterol HFA Take 2 Puffs by 2 Inhaler 5 02/28/2016 Active (VENTOLIN) 108 (90 inhalation EVERY BASE) MCG/ACT FOUR HOURS Inhalation Aero NEEDED (SOB). SolnIndications: Mild Dispense with intermittent asthma spacer without complication levothyroxine Take 1 Tab by 30 Tab 2 07/11/2018 Active (SYNTHROID) 25 MCG Oral mouth BEFORE TabIndications: Hair BREAKFAST. loss disorder sumatriptan (IMITREX) Take 1 Tab by 6 Tab 2 07/11/2018 Active 100 MG Oral mouth TabIndications: DIRECTED. 1 tab Persistent headaches at onset of headache - may repeat if needed in 2 hours. No more than 2 tabs in 24 hour period diclofenac (VOLTAREN) Take 1 Tab by 60 Tab 1 02/19/2019 Active 75 MG Oral Tab mouth TWICE ECIndications: Mild DAILY. persistent asthma without complication trazodone (DESYREL) 50 Take 1 Tab by 90 Tab 0 05/06/2019 Active MG Oral TabIndications: mouth EVERY Chest pain, unspecified BEDTIME. type documented as of this encounter (statuses as of 05/06/2019) Active Problems Problem Noted Date Spondylosis of lumbar region without myelopathy or radiculopathy 08/13/2018 Thoracic spondylosis without myelopathy 08/13/2018 Calculus of kidney with calculus of ureter 03/14/2017 Overview: Added automatically from request for surgery [id number] Mild persistent asthma without complication 11/12/2016 Ventral hernia 08/04/2014 Esophageal reflux 05/28/2013 Overview: EGD 05/08- gastritis LBP (low back pain) 12/25/2012 Overview: follwed by Dr Casas for pain medication Seasonal Allergies 07/23/2007 Alopecia 07/23/2007 documented as of this encounter (statuses as of 05/06/2019) Social History Tobacco Use Types Packs/Day Years Used Date Never Smoker Smokeless Tobacco: Never Used Alcohol Use Drinks/Week oz/Week Comments No 0 Standard drinks or equivalent 0.0 occasionally Sex Assigned at Date Recorded Not on file Job Start Date Occupation Industry Not on file Not on file Not on file Travel History Travel Start Travel End No recent travel history available. documented as of this encounter Last Filed Vital Signs Vital Sign Reading Time Taken Comments Blood Pressure 98/58 05/06/2019 2:17 PM EST Pulse 68 05/06/2019 2:17 PM EST Temperature 36.4 05/06/2019 2:17 PM EST C (97.6 F) Respiratory Rate - - Oxygen Saturation 99% 05/06/2019 2:17 PM EST Inhaled Oxygen Concentration - - Weight 81.2 kg (179 lb) 05/06/2019 2:17 PM EST Height 160 cm (5' 3") 05/06/2019 2:17 PM EST Body Mass Index 31.71 05/06/2019 2:17 PM EST documented in this encounter Progress Notes Deni Palomino PA - 05/06/2019 2:20 PM EST PATIENT: Darcie Muse : 1985 DATE OF SERVICE: 05/06/2019 CHIEF COMPLAINT: Chief Complaint Patient presents with Chest Pain pt states that she has non-cardiac chest pain x 1.2/2 wks, wakes her up at night time Subjective HISTORY OF PRESENT ILLNESS: Darcie Muse is a 33-y.o. female. Darcie presents today with a 2 week onset of chest pressure. She has had a number of recent stressors that have attributed to the pain that induces the pain, including the loss of many friends and family members. She is also trying to balance her work life and caring for loved ones and is feeling likeshe is wearing herself down. She states that she is awoken by the pressure in the middle of the night and has been tired from notsleeping well recently, but denies orthopnea or paroxysmal nocturnal dyspnea. She denies any chest pain or pain in the arm or jaw, dizziness, light headedness , syncope or loss ofconsciousness, nausea, vomiting, and diarrhea, or thoughts of suicidal ideation. Past Medical History: Diagnosis Date Alopecia 07/23/2007 Exercise-induced asthma GERD (gastroesophageal reflux disease) IUD (intrauterine device) in place mirena Pulmonary disease Seasonal Allergies 07/23/2007 Family History Problem Relation Age of Onset Alcohol/Drug Mother Arthritis Mother Diabetes Mother GI Mother Genitourinary () Mother Heart Mother pacemaker Hypertension Mother Psychiatry Mother Thyroid Mother Alcohol/Drug Father Allergies Brother Asthma Brother Allergies Brother Hypertension Maternal Grandmother Heart Maternal Grandmother Heart Paternal Grandmother Hypertension Paternal Grandmother Heart Maternal Aunt 38 CABG Hypertension Maternal Aunt Heart Paternal Uncle 68 Current Outpatient Medications Medication Sig albuterol (PROVENTIL, VENTOLIN) (2.5 MG/3ML) 0.083% Inhalation Nebu Soln 3 mL by Inhalation-SVN route EVERY SIX HOURS NEEDED (cough). albuterol HFA (VENTOLIN) 108 (90 BASE) MCG/ACT Inhalation Aero Soln Take 2 Puffs by inhalation EVERY FOUR HOURS NEEDED (SOB). Dispense with spacer budesonide-formoterol fumarate (SYMBICORT) 160-4.5 MCG/ACT Inhalation Aerosol Take 2 INHL by inhalation TWICE DAILY. Cholecalciferol (VITAMIN D-3 PO) Take 5,000 Units by mouth DAILY. Cyanocobalamin (B-12) 1000 MCG Oral Cap Take by mouth DAILY. diclofenac (VOLTAREN) 75 MG Oral Tab EC Take 1 Tab by mouth TWICE DAILY. levothyroxine (SYNTHROID) 25 MCG Oral Tab Take 1 Tab by mouth BEFORE BREAKFAST. sumatriptan (IMITREX) 100 MG Oral Tab Take 1 Tab by mouth DIRECTED. 1 tab at onset of headache - may repeat if needed in 2 hours. No more than 2 tabs in 24 hour period trazodone (DESYREL) 50 MG Oral Tab Take 1 Tab by mouth EVERY BEDTIME. No current facility-administered medications for this visit. Allergies Allergen Reactions Ciprofloxacin Hcl Hives Dilaudid (No Cough) Other Itching all over Keflex GI Reaction Nausea and vomiting Singulair Other Not effective Social History Socioeconomic History Marital status: Single Spouse name: Not on file Number of children: Not on file Years of education: Not on file Highest education level: Not on file Occupational History Not on file Social Needs Financial resource strain: Not on file Food insecurity Worry: Not on file Inability: Not on file Transportation needs Medical: Not on file Non-medical: Not on file Tobacco Use Smoking status: Never Smoker Smokeless tobacco: Never Used Substance and Sexual Activity Alcohol use: No Alcohol/week: 0.0 standard drinks Comment: occasionally Drug use: No Types: Marijuana Sexual activity: Yes Partners: Male Lifestyle Physical activity Days per week: Not on file Minutes per session: Not on file Stress: Not on file Relationships Social connections Talks on phone: Not on file Gets together: Not on file Attends jainism service: Not on file Active member of club or organization: Not on file Attends meetings of clubs or organizations: Not on file Relationship status: Not on file Intimate partner violence Fear of current or ex partner: Not on file Emotionally abused: Not on file Physically abused: Not on file Forced sexual activity: Not on file Other Topics Concern Back Care Not Asked Bike Helmet Not Asked Blood Transfusions Not Asked Caffeine Concern Not Asked Exercise Not Asked Hobby Hazards Not Asked International Travel Not Asked Service Not Asked Occupational Exposure Not Asked Seat Belt Not Asked Self-Exams Not Asked Sleep Concern Not Asked Special Diet Not Asked Stress Concern Not Asked Weight Concern Not Asked Social History Narrative 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 Not currently working. REVIEW OF SYSTEMS: Review of Systems Constitutional: Positive for malaise/fatigue. Negative for chills and fever. Respiratory: Negative for cough, shortness of breath and wheezing. Cardiovascular: Positive for palpitations. Negative for chest pain and leg swelling. Gastrointestinal: Negative for diarrhea, heartburn, nausea and vomiting. Neurological: Negative for dizziness, loss of consciousness, weakness and headaches. Psychiatric/Behavioral: Negative for depression, substance abuse and suicidal ideas. The patient is nervous/anxious. Objective PHYSICAL EXAM: VITALS: BP 98/58 (BP Location: Right arm, Patient Position: Sitting) | Pulse 68 | Temp 97.6 F(36.4 C) | Ht 5' 3" (1.6 m) | Wt 179 lb (81.2 kg) | SpO2 99% | BMI 31.71 kg/m Body massindex is 31.71 kg/m. Physical Exam Constitutional: Appearance: Normal appearance. HENT: Head: Normocephalic and atraumatic. Mouth/Throat: Mouth: Mucous membranes are moist. Eyes: Pupils: Pupils are equal, round, and reactive to light. Neck: Musculoskeletal: No neck rigidity. Cardiovascular: Rate and Rhythm: Normal rate. Heart sounds: No murmur. No friction rub. No gallop. Pulmonary: Effort: Pulmonary effort is normal. Breath sounds: No wheezing, rhonchi or rales. Abdominal: General: Abdomen is flat. Palpations: Abdomen is soft. Tenderness: There is no abdominal tenderness. There is no guarding. Musculoskeletal: General: No swelling, tenderness or deformity. Skin: General: Skin is warm and dry. Neurological: Mental Status: She is alert and oriented to person, place, and time. Mental status is at baseline. Sensory: No sensory deficit. Psychiatric: Mood and Affect: Mood normal. Behavior: Behavior normal. Thought Content: Thought content normal. EKG Evaluation: 12 Lead EKG obtained by Danii Vick LPN. Normal sinus rhythm, no acute pathology present. ASSESSMENT / IMPRESSION: ICD-9-CM ICD-10-CM 1. Chest pain, unspecified type 786.50 R07.9 AMBULATORY 12 LEAD EKG (GLOBAL) trazodone (DESYREL) 50 MG Oral Tab 2. Anxiety 300.00 F41.9 Chest pressure is likely from the situational anxiety that has been going on recently. I wrote for trazodone so she can sleep better at night and calm her nerves before bed. This should improve her overall mood as a result of getting better sleep. I advised that she should be seeking a therapist at [facility], which she expressed an eager agreement to. I want her to follow up or call if she has any questions or concerns, or the anxiety continues to worsen. Author: CARLENE Marsh 05/06/2019 14:55 documented in this encounter Plan of Treatment Date Type Specialty Care Team Description 06/05/2019 Office Visit [place] [address] [place] [address] [phone] Name Type Priority Associated Diagnoses Order Schedule AMBULATORY 12 LEAD EKG EKG Routine Chest pain, unspecified Ordered: 2018 (GLOBAL) type Health Maintenance Due Date Last Done Comments PNEUMOCOCCAL 0-64 YRS (11/15/1991 - PPSV23) DTaP/Tdap/Td Vaccines ( - 1996 Tdap) INFLUENZA VACCINE (#1) 2019 DEPRESSION SCREENING 02/20/2020 02/19/2019, 02/08/2010 HEPATITIS A IMMUNIZATION Aged Out No longer eligible based SERIES on patient's age to complete this topic HPV IMMUNIZATION SERIES Aged Out No longer eligible based on patient's age to complete this topic MENINGOCOCCAL VACCINE IMM Aged Out No longer eligible based on patient's age to complete this topic documented as of this encounter Results Not on filedocumented in this encounter Visit Diagnoses Diagnosis Chest pain, unspecified type Anxiety Anxiety state, unspecified documented in this encounter (Home) [place] [phone] [place], [place] (Work) [address] documented as of this encounter Advance Directives Code Status Date Activated Date Inactivated Comments Full Code 03/19/2017 11:35 AM 03/19/2017 4:41 PM Does patient have decision making capacity? YES
[2019-05-15 17:23] VITALS: BP 134/68
== END 2019-05-15 17:38 | disposition short-term general hospital (02) ==
LOC: UCEAST 16:44
DX: R42 Dizziness and giddiness (principal); R55 Syncope and collapse; J45.909 Unspecified asthma, uncomplicated; Z88.1 Allergy status to other antibiotic agents; Z88.5 Allergy status to narcotic agent
CPT/HCPCS: 99213; G0463

== ENCOUNTER 2019-05-15 18:03 | Emergency (ER) | payer OTHER ==
[2019-05-15] MEDS ORDERED: NS 0.9% 1000 ML** 1,000 ML IV ONE (18:21)
[2019-05-15] MEDS ORDERED: Ondansetron INJ* 2 MG/ML VIAL IV ONE (18:21)
--- NOTE | 2019-05-15 18:28 | ED ---
Syncope/Near Syncope - HPI Summary HPI Summary: This patient is a 33 year old female with a Hx of migraine from [facility] brought in by EMS presenting to [facility] with a chief complaint of syncope 2 hours ago. The patient states she was in a department store and passed out, falling into a pile of clothes. She states she had been feeling dizzy and then after the episode she began to experience a migraine. She states she had tunnel vision. She denies SOB and LE edema. She states she has never had a syncopal episode before. - History Of Current Complaint Chief Complaint: EDSyncope Time Seen by Provider: 05/15/19 18:17 Hx Obtained From: Patient Onset/Duration: Lasting Hours Associated Head Trauma: No - Allergies/Home Medications Allergies/Adverse Reactions: Allergies Allergy/AdvReac Type Severity Reaction Status Date / Time cephalexin [From Keflex] AdvReac Nausea And Verified 05/15/19 16:55 Vomiting ciprofloxacin AdvReac Nausea And Verified 05/15/19 16:55 Vomiting hydromorphone [From Dilaudid] AdvReac Nausea And Verified 05/15/19 16:55 Vomiting oxycodone [From Percocet] AdvReac Nausea And Verified 05/15/19 16:55 Vomiting Home Medications: Home Medications traZODone TAB* [Desyrel TAB*] 50 mg PO BEDTIME 05/15/19 [History Confirmed 05/15] PMH/Surg Hx/FS Hx/Imm Hx Endocrine/Hematology History: Reports: Hx Thyroid Disease - hypothyroid Denies: Hx Diabetes Cardiovascular History: Reports: Hx Hypotension Denies: Hx Congestive Heart Failure, Hx Hypertension Respiratory History: Reports: Hx Asthma GI History: Reports: Hx Gastroesophageal Reflux Disease, Hx Irritable Bowel, Other GI Disorders - Appendectomy, stomach "issues" History: Reports: Hx Kidney Stones, Other Problems/Disorders - hydronephrosis; frequent urination Denies: Hx Renal Disease Musculoskeletal History: Reports: Hx Back Problems, Other Musculoskeletal History - INVERTED LEFT SI JOINT PER PT Sensory History: Denies: Hx Contacts or Glasses, Hx Glaucoma, Hx Vision Problem, Hx Hearing Aid, Hx Hearing Problem Opthamlomology History: Denies: Hx Contacts or Glasses, Hx Glaucoma, Hx Vision Problem Neurological History: Reports: Hx Migraine - OCC Psychiatric History: Reports: Hx Anxiety, Hx Depression, Other Psychiatric Issues/Disorders - Benadryl overdose October 2015, took 10 pills due to insommnia Denies: Hx Eating Disorder, Hx Substance Abuse - Surgical History Surgery Procedure, Year, and Place: UMBILICAL HERNIA REPAIR 2001. OVARIAN CYSTECTOMY 2006 [facility] [place]. Appendectomy 09/08 [facility] [place]. 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 Denies: Traveled Outside the [place] in Last 30 Days - Family History Known Family History: Positive: Cardiac Disease, Diabetes, Other - EtOH depdence , bipolar dz per EMR, malignant hyperthermia, breast CA - Social History Alcohol Use: None Hx Substance Use: No Substance Use Type: Reports: Marijuana Substance Use Comment - Amount & Last Used: "sometimes" Hx Tobacco Use: No Smoking Status (MU): Never Smoked Tobacco Review of Systems Positive: Other - Tunnel vision Negative: Shortness Of Breath Negative: Edema Neurological: Other - Dizziness Positive: Headache, Syncope All Other Systems Reviewed And Are Negative: Yes Physical Exam - Summary Physical Exam Summary: Constitutional: Well-developed, Well-nourished, Alert. (-) Distressed Skin: Warm, Dry HENT: Normocephalic; Atraumatic Eyes: Conjunctiva normal, no nystagmus. Positive photophobia. Neck: Musculoskeletal ROM normal neck. (-) JVD, (-) Stridor, (-) Tracheal deviation Cardio: Rhythm regular, rate normal, Heart sounds normal; Intact distal pulses; The pedal pulses are 2+ and symmetric. Radial pulses are 2+ and symmetric. (-) Murmur Pulmonary/Chest wall: Effort normal. (-) Respiratory distress, (-) Wheezes, (-) Rales Abd: Soft. (-) Tenderness, (-) Distension, (-) Guarding, (-) Rebound Musculoskeletal: (-) Edema Lymph: (-) Cervical adenopathy Neuro: Alert, Oriented x3, Strength normal, Cranial nerves II-XII are grossly intact. (-) Dysmetria, (-) Nystagmus, (-) Ataxia by finger to nose testing, (-) Sensory deficit. No focal deficits. Psych: Mood and affect Normal Triage Information Reviewed: Yes Vital Signs On Initial Exam: Initial Vitals Temp Pulse Resp BP Pulse Ox 98.0 F 70 20 127/62 99 05/15/19 18:07 05/15/19 18:07 05/15/19 18:07 05/15/19 18:07 05/15/19 18:07 Vital Signs Reviewed: Yes Procedures - Sedation Patient Received Moderate/Deep Sedation with Procedure: No Diagnostics - Vital Signs Vital Signs Temp Pulse Resp BP Pulse Ox 05/15/19 18:07 98.0 F 70 20 127/62 99 - Laboratory Result Diagrams: 05/15/19 19:18 05/15/19 19:18 Lab Statement: Any lab studies that have been ordered have been reviewed, and results considered in the medical decision making process. Course/Dx Course Of Treatment: This patient is a 33 year old female with a Hx of migraine from [facility] brought in by EMS presenting to [facility] with a chief complaint of syncope 2 hours ago. Prehospital EKG at 1657 showed NSR 73 BPM with no ischemic changes. Bloodwork is unremarkable. Patient was administered Zofran, Reglan, Toradol, and Benadryl. Plan for discharge was discussed with the pateint and he was agreeable with this plan. No significant findings upon ED workup. Patient' s report of syncope likely secondary to orthostasis or vasovagal episode. Patient feeling comfortable with discharge home with friend at the bedside. Has PCP for follow-up. - Diagnoses Provider Diagnoses: Syncope, Migraine Discharge ED - Sign-Out/Discharge Documenting (check all that apply): Patient Departure - Discharge - Discharge Plan Condition: Stable Disposition: HOME Patient Education Materials: Syncope (ED) Referrals: Jonna Lin MD [Primary Care Provider] - Additional Instructions: Return to ED with new or worsening symptoms. - Billing Disposition and Condition Condition: STABLE Disposition: Home - Attestation Statements Document Initiated by Scribe: Yes Documenting Scribe: Ludwig Cuevas Provider For Whom Scribe is Documenting (Include Credential): Abhilash Oliva DO Scribe Attestation: Ludwig Robledo, kehindeed for Abhilash Oliva DO on 05/16/19 at 1009. Status of Scribe Document: Viewed
[2019-05-15] MEDS ORDERED: Ketorolac INJ* 30 MG/ML 1 ML VIAL IV PUSH ONE (18:29)
[2019-05-15 19:23] LABS: ABS Basophils 0.1 10^3/ul (0-0.2); ABS Eosinophils 0.2 10^3/ul (0-0.6); ABS Lymphocytes 3.2 10^3/ul (1.0-4.8); ABS Monocytes 0.7 10^3/ul (0-0.8); ABS Neutrophils 5.8 10^3/ul (1.5-7.7); Eosinophil % 2.3 %; Hematocrit 36 % (35-47); Lymphocyte % 31.9 %; Mean Corpuscular HGB Conc 34 g/dL (31-36); Mean Corpuscular Hemoglobin 31 pg (27-31); Mean Corpuscular Volume 92 fL (80-97); Mean Platelet Volume 7.9 fL (7.4-10.4); Platelet Count 306 10^3/uL (150-450); Red Blood Count 3.87 10^6 /uL (3.70-4.87); Red Cell Distribution Width 13 % (10-15)
[2019-05-15 19:41] LABS: Albumin 4.3 g/dL (3.2-5.2); Albumin/Globulin Ratio 1.7 (1-3); BUN/Creatinine Ratio 11.3 (8-20); Calcium 8.8 mg/dL (8.6-10.3); EGFR Non-African American 82.6 (>60); Globulin 2.5 g/dL (2-4); Potassium 3.6 mmol/L (3.5-5.0); Total Bilirubin 0.4 mg/dL (0.2-1.0); Total Protein 6.8 g/dL (6.4-8.9)
[2019-05-15] MEDS ORDERED: diPHENhydraMINE IV* 50 MG/ML 1 ml VIAL (BENADRYL) IV ONE (19:54)
[2019-05-15] MEDS ORDERED: Metoclopramide IV* 5 MG/ML 2 ML VIAL IV ONE (19:54)
[2019-05-15 20:53] LABS: HIV 4th Generation Nonreactive (Nonreactive)
[2019-05-15 21:43] VITALS: BP 125/74
== END 2019-05-15 21:42 | disposition home or self-care (01) ==
LOC: ED 18:03
DX: R55 Syncope and collapse (principal); G43.909 Migraine, unspecified, not intractable, without status migrainosus; E03.9 Hypothyroidism, unspecified; K21.9 Gastro-esophageal reflux disease without esophagitis; Z79.899 Other long term (current) drug therapy
CPT/HCPCS: 36415; 80053; 85025; 87389; 96361; 96374; 96375; 99282; J1200; J1885; J2405; J2765